=== PATIENT | female | born 1950 | race Caucasian/White ===

== ENCOUNTER 2019-07-29 00:32 | Day surgery (SDC) | payer MEDICARE, SELFPAY ==
[2019-07-23 14:03] VITALS: BMI 51.6
[2019-07-29 10:05] VITALS: BP 124/93; PULSE 86; RESP 18; TEMP 36.6; O2SAT 99; BMI 51.9
[2019-07-29 10:20] LABS: Glucose Point of Care 289 (65-105)
[2019-07-29] MEDS: LACTATED RINGERS 1,000 ML 150 ML IV CONT (10:20)
--- NOTE | 2019-07-29 10:24 | WPDANESEPPF ---
Anes - Initial Pre Proc Eval Procedure: Operation Date: 07/29/19 10:45 Proposed Procedures p Esophagogastroduodenoscopy & Colonoscopy - Vipul Parsons MD Date/Time: 07/29/19 10:24 Surgeon: Vipul Parsons MD Pre Op Diagnosis: Dyspesia, Poss Colorectal Test Patient Data Age: 68 Gender: F Height: 1.55 m Weight: 124.7 kg Last Vital Signs Temp 36.6 C 07/29/19 10:05 Pulse 86 07/29/19 10:05 Resp 18 07/29/19 10:05 BP 124/93 H 07/29/19 10:05 Pulse Ox 99 07/29/19 10:05 Allergies Allergy/AdvReac Type Severity Reaction Status Date / Time codeine Allergy Unknown Itching Verified 07/29/19 09:59 Home Medications Medication Instructions Recorded Confirmed Type amlodipine 10 mg tablet 10 mg PO DAILY #90 tablet 04/08/19 07/23/19 Rx fluoxetine 10 mg tablet 10 mg PO DAILY #90 tablet 04/08/19 07/23/19 Rx furosemide 40 mg tablet 40 mg PO BID #180 tablet 04/08/19 07/23/19 Rx losartan 100 1 tablet PO DAILY #90 tablet 04/08/19 07/23/19 Rx mg-hydrochlorothiazide 12.5 mg tablet metformin 500 mg tablet,extended 1,000 mg PO BID #360 tablet 04/08/19 07/23/19 Rx release 24 hr metoprolol succinate 100 mg 100 mg PO DAILY 04/08/19 07/23/19 History tablet,extended release 24 hr glimepiride 2 mg tablet 2 mg PO BID #180 tablet 06/07/19 07/23/19 Rx meloxicam 15 mg tablet 15 mg PO DAILY #90 tablet 07/06/19 07/23/19 Rx aspirin 81 mg tablet,delayed 81 mg PO DAILY 07/22/19 07/23/19 History release peg 3350-electrolytes 236 240 ml PO Q10M #4000 ml 07/27/19 Rx gram-22.74 gram-6.74 gram-5.86 gram solution Laboratory Tests 07/29/19 10:18 POC Capillary Glucose 289 mg/dl H mg/dl (65-105) Patient hx anesthesia problems: none Family hx anesthesia problems: none PMFSH Past Medical History Medical History (Updated 07/28/19 @ 09:53 by Ebenezer Messer, ) Anxiety Chronic diastolic heart failure Dyspepsia Essential (primary) hypertension Family history of esophageal cancer MDD (major depressive disorder), recurrent episode, moderate Morbid obesity NICOLAS (obstructive sleep apnea) NO CPAP Positive colorectal cancer screening using Cologuard test Type 2 diabetes mellitus with diabetic polyneuropathy, without long-term current use of insulin Surgical History Surgical History (Updated 04/08/19 @ 10:43 by Rocio Acevedo NP) History of bilateral knee arthroplasty History of carpal tunnel release History of cholecystectomy Family History Family History (Updated 04/21/18 @ 10:00 by DOCTOR UNKNOWN) Sibling Diabetes mellitus Patient's sister is in good health Patient's brother is in good health Family history of cardiovascular disease Father Family history of cardiovascular disease Family history of arthritis Family history of malignant neoplasm, Onset Age: 65 Mother Family history of lung disease, Onset Age: 71 Social History Social History (Updated 04/08/19 @ 10:35 by Katelynn Posada) Smoking status: Never smoker Second hand tobacco smoke exposure: No Alcohol intake: former Substance use: never Substance use type: does not use Gender identity (if verbalized by the patient): Female Anes - Eval Final PreProcedure Day of Procedure 07/29/19 10:24 Patient weight: super morbidly obese Heart: regular rate and rhythm Lungs: clear to auscultation and normal air movement Airway: Mallampati scale class III Neurological: alert and oriented Last oral intake: >/= 8 hours ASA classification: IV Emergent: no Anesthetic plan: proceed Anesthesia type and monitoring: general GIVS and standard monitoring Informed Consent: The patient's anesthetic plan and its attendant risks and benefits were discussed with the patient/family/POA. Questions were solicited and answers provided to the satisfaction of the patient/family/POA.
--- NOTE | 2019-07-29 11:36 | WPDHPUPDATE1 ---
History and Physical Update Update Date/Time: 07/29/19 11:36 History and Physical has been reviewed, including an updated exam of the patient. There are NO changes in the patient's condition. Risks, benefits, and alternatives have been discussed and questions answered. Patient agrees to proceed with procedure.
[2019-07-29 11:38] VITALS: BP 122/65; PULSE 66; RESP 20; O2SAT 99
[2019-07-29 11:48] VITALS: BP 140/65; PULSE 70; RESP 20; O2SAT 99
[2019-07-29 11:58] VITALS: BP 132/70; PULSE 66; RESP 20; O2SAT 99
== END 2019-07-29 12:11 | disposition home or self-care (01) ==
PROVIDERS: PCP Family Medicine; Visit Provider Internal Medicine Gastroenterology
PROC: 0DJ08ZZ Inspection of Upper Intestinal Tract, Via Natural or Artificial Opening Endoscopic (ICD-10-PCS; CPT 43235; principal; 2019-07-29 10:45)
DX: C18.6 Malignant neoplasm of descending colon (principal); D12.3 Benign neoplasm of transverse colon; K57.30 Diverticulosis of large intestine without perforation or abscess without bleeding; K64.8 Other hemorrhoids; K21.0 Gastro-esophageal reflux disease with esophagitis; K44.9 Diaphragmatic hernia without obstruction or gangrene; K29.50 Unspecified chronic gastritis without bleeding; I11.0 Hypertensive heart disease with heart failure; I50.32 Chronic diastolic (congestive) heart failure; E11.40 Type 2 diabetes mellitus with diabetic neuropathy, unspecified; F33.1 Major depressive disorder, recurrent, moderate; F41.9 Anxiety disorder, unspecified; Z80.0 Family history of malignant neoplasm of digestive organs; Z79.82 Long term (current) use of aspirin; Z79.84 Long term (current) use of oral hypoglycemic drugs; E66.01 Morbid (severe) obesity due to excess calories; Z68.43 Body mass index [BMI] 50.0-59.9, adult
CPT/HCPCS: 45385; 45381; 43239; 88305; J2704; J7120

== ENCOUNTER → 2019-08-18 08:29 | Outpatient (CLI) | payer MEDICARE, SELFPAY ==
--- NOTE | ~2019-08-18 | CT_ITS ---
EXAMINATION: CT chest abdomen pelvis w con DATE: 08/18/2019 09:12 INDICATION: Malignant neoplasm of descending colon TECHNIQUE: Computed tomography (CT) of the chest, abdomen, and pelvis was performed with 100 cc Omnip aque 350 intravenous contrast. Automated exposure control and iterative reconstruction technique were employed. Exam dose: 1360.04 mGy-cm total exam DLP. COMPARISON: 11/02/2015 CT abdomen pelvis 06/25/2018 two-view chest FINDINGS: CHEST CT: There is an approximately 4.5 mm pleural-based nodule at the middle lobe (series 4 image 66). There is a calcified granuloma of the superior segment of the left lower lobe, as well as calcified l eft hilar nodes, consistent with old pulmonary granulomatous disease. No pulmonary infiltrate or consolidation or suspicious pulmonary mass lesion is noted otherwise. Aortic and great vessel and coronary artery calcifications. No thoracic aortic aneurysm. Cardiomegaly . No pericardial effusion. No pleural effusion. No hilar or mediastinal mass lesion or lymphadenopathy. Normal size and homogeneous enhancement of th e thyroid gland. ABDOMEN/PELVIS CT: Diffuse hepatic steatosis. Status post cholecystectomy. No hepatic, pancreatic, splenic or adrenal mass lesion. No bile duct or pancreatic duct dilatation. Lower pole exophytic 1.5 cm left renal cyst. No other renal space occupying mass lesion. No urinary t ract calculus or hydroureteronephrosis. The urinary bladder, uterus and adnexal areas are unremarkable. Normal appendix. No bowel obstruction or intraperitoneal free air. Degenerative changes at the apophyseal joints of the lumbar and lumbosacral area with associated grad e 1 anterolisthesis at L4-5. No suspicious osteolytic or osteoblastic lesions. Bilateral hip osteoarthritis. IMPRESSION: 4.5 mm pleural-based middle lobe nodule Old pulmonary granulomatous disease Cardiomegaly Hepatic steatosis Status post cholecystectomy 1.5 cm lower pole left renal exophytic cyst Reviewed, dictated and finalized at [facility]. Reviewed, dictated and finalized at [facility].
[2019-08-18 08:58] LABS: Estimated Glomerular Filt Rate > 60
== END ==
PROVIDERS: Visit Provider Internal Medicine Hematology & Oncology
DX: C18.6 Malignant neoplasm of descending colon (principal); R91.8 Other nonspecific abnormal finding of lung field; I51.7 Cardiomegaly; Z90.49 Acquired absence of other specified parts of digestive tract; N20.1 Calculus of ureter
CPT/HCPCS: 36415; 71260; 74177; Q9967

== ENCOUNTER 2019-10-18 13:52 | Outpatient (CLI) | payer MEDICARE, SELFPAY ==
--- NOTE | 2019-10-18 14:49 | ECG_ITS ---
Measurements Intervals [place] Rate: 77 P: 67 GA: 146 QRS: -20 QRSD: 154 T: 22 QT: 402 QTc: 456 Interpretive Statements SINUS RHYTHM SUPRAVENTRICULAR BIGEMINY RIGHT BUNDLE BRANCH BLOCK VOLTAGE CRITERIA FOR LVH ABNORMAL ECG Electronically Signed On 10-18-2019 15:11:42 CDT by Kendell Laws D.O.
[2019-10-18 15:30] LABS: Hematocrit 44.2 % (37.0-47.0); Hemoglobin 14.5 g/dL (12.0-15.0)
[2019-10-18 15:41] LABS: Blood Urea Nitrogen 17 mg/dL (7-17); Calcium 9.7 mg/dL (8.4-10.2); Carbon Dioxide 31 mmol/L (22-30); Chloride 96 mmol/L (98-107); Estimated Glomerular Filt Rate > 60; Glucose 145 mg/dL (65-105); Potassium 3.4 mmol/L (3.4-5.0); Sodium 137 mmol/L (137-145)
[2019-10-18 16:12] LABS: Carcinoembryonic Antigen 3.6 ng/mL (0.0-3.0)
== END 2019-10-18 13:53 | disposition home or self-care (01) ==
LOC: ANHSURGERY 13:56
PROVIDERS: Anesthesiology; PCP Family Medicine; Visit Provider Surgery
DX: C18.6 Malignant neoplasm of descending colon (principal); E11.65 Type 2 diabetes mellitus with hyperglycemia; I50.32 Chronic diastolic (congestive) heart failure; I45.10 Unspecified right bundle-branch block
CPT/HCPCS: 36415; 80048; 82378; 85014; 85018; 86850; 86900; 86901; 93005

== ENCOUNTER 2019-10-23 00:36 | Outpatient (CLI) | payer MEDICARE, SELFPAY ==
[2019-10-23 16:39] LABS: SARS-CoV-2 RNA PCR Negative
== END 2019-10-23 00:37 | disposition home or self-care (01) ==
LOC: ANHCOVIDDT 00:36
PROVIDERS: PCP Family Medicine; Visit Provider Surgery
DX: Z01.812 Encounter for preprocedural laboratory examination (principal); Z20.828 Contact with and (suspected) exposure to other viral communicable diseases; C18.6 Malignant neoplasm of descending colon
CPT/HCPCS: 87635; C9803; U0003

== ENCOUNTER 2019-10-26 16:11 | Inpatient (IN) | payer MEDICARE, SELFPAY ==
[2019-10-18 14:56] VITALS: BP 159/72; PULSE 69; RESP 18; TEMP 37.1; O2SAT 97; BMI 51.5
[2019-10-26] VITALS (14 sets, daily range): BP systolic 103–159; BP diastolic 45–90; PULSE 67–87; RESP 10–20; TEMP 36.1–36.8; O2SAT 96–100
--- NOTE | 2019-10-26 10:23 | WPDANESEPPF ---
Anes - Initial Pre Proc Eval Procedure: Operation Date: 10/26/19 11:30 Proposed Procedures p Hand Assisted Laparoscopic Left Hemicolectomy, Possible Open - Matt Wells DO Date/Time: 10/26/19 10:23 Surgeon: Matt Wells DO Pre Op Diagnosis: Descending Colon Ca Patient Data Age: 68 Gender: F Height: 5 ft 1 in Weight: 123.6 kg Last Vital Signs Temp 98.8 F 10/18/19 14:56 Pulse 69 10/18/19 14:56 Resp 18 10/18/19 14:56 BP 159/72 H 10/18/19 14:56 Pulse Ox 97 10/18/19 14:56 Allergies Allergy/AdvReac Type Severity Reaction Status Date / Time codeine Allergy Unknown Itching Verified 10/18/19 14:45 Home Medications Medication Instructions Recorded Confirmed Type metformin 500 mg tablet,extended 1,000 mg PO BID #360 tablet 04/08/19 10/18/19 Rx release 24 hr multivitamin 1 tablet PO DAILY 08/05/19 10/18/19 History furosemide 40 mg tablet 40 mg PO BID #180 tablet 08/11/19 10/18/19 Rx losartan 100 1 tablet PO DAILY #90 tablet 08/11/19 10/18/19 Rx mg-hydrochlorothiazide 12.5 mg tablet fluoxetine 10 mg capsule 10 mg PO DAILY #90 cap 08/23/19 10/18/19 Rx glimepiride 2 mg tablet 2 mg PO BID #180 tablet 09/05/19 10/18/19 Rx dulaglutide 1.5 mg/0.5 mL 1.5 mg SUB-Q WEEKLY 90 Days #6.5 ml 09/14/19 10/18/19 Rx subcutaneous pen injector omeprazole 20 mg capsule,delayed 20 mg PO BID #180 cap 09/14/19 10/18/19 Rx release albuterol sulfate 0.63 mg INHALATION Q4H PRN 10/18/19 10/18/19 History amlodipine 10 mg PO HS 10/18/19 10/18/19 History insulin glargine [Lantus Solostar 14 unit SUB-Q .am and pm 10/18/19 10/18/19 History U-100 Insulin] metoprolol succinate 100 mg 100 mg PO DAILY #90 tablet 10/22/19 Rx tablet,extended release 24 hr Patient hx anesthesia problems: none Family hx anesthesia problems: none PMFSH Past Medical History Medical History (Updated 10/05/19 @ 11:27 by Shari Ramirez PA-C) Anxiety CHF (congestive heart failure) Chronic diastolic heart failure Dyspepsia Essential (primary) hypertension Family history of esophageal cancer MDD (major depressive disorder), recurrent episode, moderate Morbid obesity NICOLAS (obstructive sleep apnea) NO CPAP Positive colorectal cancer screening using Cologuard test Type 2 diabetes mellitus with diabetic polyneuropathy, without long-term current use of insulin Type 2 diabetes mellitus with hyperglycemia Surgical History Surgical History History of bilateral knee arthroplasty 6 years for r , 6 years for l History of carpal tunnel release 20 years ago History of cholecystectomy 30 years ago Social History Social History (Updated 10/05/19 @ 10:59 by Katelynn Posada) Smoking status: Never smoker Second hand tobacco smoke exposure: No Alcohol intake: former Substance use: never Substance use type: does not use Gender identity (if verbalized by the patient): Female Anes - Eval Final PreProcedure Day of Procedure 10/26/19 10:23 Patient weight: super morbidly obese Heart: regular rate and rhythm Lungs: clear to auscultation Airway: Mallampati scale class II Neurological: alert and oriented Last oral intake: >/= 8 hours ASA classification: IV Emergent: no Anesthetic plan: proceed Anesthesia type and monitoring: general ETT and standard monitoring Informed Consent: The patient's anesthetic plan and its attendant risks and benefits were discussed with the patient/family/POA. Questions were solicited and answers provided to the satisfaction of the patient/family/POA.
[2019-10-26 10:28] LABS: Glucose Point of Care 352 (65-105)
[2019-10-26] MEDS: LACTATED RINGERS 1,000 ML 30 ML IV CONT ×2 (10:55→14:54)
--- NOTE | 2019-10-26 11:05 | PM.IMHP ---
H&P: HPI History of Present Illness Chief complaint: Descending Colon Ca Narrative: Rosa Isela Helms is a 68 year old female who presents for left colectomy. She previously underwent colonoscopy and was found to have colon cancer. Area was tattooed. Other workup was negative for metastases. Review of Systems Review of Systems: All systems reviewed & are unremarkable except as noted in HPI and below PMFSH Past Medical History Medical History Anxiety CHF (congestive heart failure) Chronic diastolic heart failure Dyspepsia Essential (primary) hypertension Family history of esophageal cancer MDD (major depressive disorder), recurrent episode, moderate Morbid obesity NICOLAS (obstructive sleep apnea) NO CPAP Positive colorectal cancer screening using Cologuard test Type 2 diabetes mellitus with diabetic polyneuropathy, without long-term current use of insulin Type 2 diabetes mellitus with hyperglycemia Surgical History Surgical History History of bilateral knee arthroplasty 6 years for r , 6 years for l History of carpal tunnel release 20 years ago History of cholecystectomy 30 years ago Family History Family History Sibling Diabetes mellitus Patient's sister is in good health Patient's brother is in good health Family history of cardiovascular disease Father Family history of cardiovascular disease Family history of arthritis Family history of malignant neoplasm, Onset Age: 65 Throat cancer Mother Family history of lung disease, Onset Age: 71 COPD (chronic obstructive pulmonary disease) Unknown Diabetes mellitus Cancer Hypertension Social History Social History Smoking status: Never smoker Second hand tobacco smoke exposure: No Alcohol intake: former Substance use: never Substance use type: does not use Gender identity (if verbalized by the patient): Female Meds Home Medications and Allergies Home Medications Medication Instructions Recorded Confirmed Type metformin 500 mg tablet,extended 1,000 mg PO BID #360 tablet 04/08/19 10/18/19 Rx release 24 hr multivitamin 1 tablet PO DAILY 08/05/19 10/18/19 History furosemide 40 mg tablet 40 mg PO BID #180 tablet 08/11/19 10/18/19 Rx losartan 100 1 tablet PO DAILY #90 tablet 08/11/19 10/18/19 Rx mg-hydrochlorothiazide 12.5 mg tablet fluoxetine 10 mg capsule 10 mg PO DAILY #90 cap 08/23/19 10/18/19 Rx glimepiride 2 mg tablet 2 mg PO BID #180 tablet 09/05/19 10/18/19 Rx dulaglutide 1.5 mg/0.5 mL 1.5 mg SUB-Q WEEKLY 90 Days #6.5 ml 09/14/19 10/18/19 Rx subcutaneous pen injector omeprazole 20 mg capsule,delayed 20 mg PO BID #180 cap 09/14/19 10/18/19 Rx release albuterol sulfate 0.63 mg INHALATION Q4H PRN 10/18/19 10/18/19 History amlodipine 10 mg PO HS 10/18/19 10/18/19 History insulin glargine [Lantus Solostar 14 unit SUB-Q .am and pm 10/18/19 10/18/19 History U-100 Insulin] metoprolol succinate 100 mg 100 mg PO DAILY #90 tablet 10/22/19 Rx tablet,extended release 24 hr Allergies Allergy/AdvReac Type Severity Reaction Status Date / Time codeine Allergy Unknown Itching Verified 10/18/19 14:45 Exam GI: Other: Right subcostal scar from previous cholecystectomy Assessment and Plan Assessment and plan (1) Cancer of descending colon: Code(s): C18.6 - Malignant neoplasm of descending colon Status: Acute Assessment and Plan: I have recommended hand assisted laparoscopic left hemicolectomy, possible open. I have discussed the procedure, risks, benefits, and alternatives with the patient. All questions answered. No changes since last seen in office. (2) CHF (congestive heart failure): Qualifiers: Heart failure type: unspecified
[2019-10-26] MEDS: ceFAZolin 3 GM/D5W 100 ML 100 ML IVPB (11:18)
[2019-10-26 11:23] LABS: Glucose Point of Care 322 (65-105)
--- NOTE | 2019-10-26 11:33 | SUR.PREOP ---
1019-Pts Blood Glucose 352. Pt stated that it was 120 this morning but she had Ensure bowel prep this morning before coming in for surgery. I notified Dr Aranda. Dr Aranda wanted me to repeat BG before pt goes back into the OR
--- NOTE | 2019-10-26 11:36 | SUR.PREOP ---
1108 Pt blood sugar 322; Dr Aranda was notified
[2019-10-26] MEDS: metroNIDAZOLE 500 MG/ISO 100ML 500 MG/100 ML BAG 100 MG IVPB (11:45)
[2019-10-26] MEDS: IBUPROFEN IV 800 MG/200 ML 800 MG/200 ML BAG 400 MG IVPB (11:50)
[2019-10-26 15:03] LABS: Glucose Point of Care 193 (65-105)
[2019-10-26 15:03] LABS: Glucose Point of Care 214 (65-105)
--- NOTE | 2019-10-26 15:23 | SUR.PHASEI ---
1523 - family updated on pt's status
[2019-10-26] MEDS: ONDANSETRON INJ 4 MG/2 ML VIAL IV PUSH (15:25)
--- NOTE | 2019-10-26 16:40 | ADMGEN ---
This patient, Rosa Isela Helms, was admitted to 3 Med Surg Room 317-01 @ 1620. Patient/family oriented to hospital policies and general routines including ID bracelet, bed and alarms, visiting hours, pain management, procedures, bathroom and other care routines, personal items, smoking policy, room service/diet, and visiting hours. Valuables list has been completed. Information on how to activate the Rapid Response Team has been discussed. Patient/Family are encouraged to report perceived risks to care and to ask questions if they do not understand what they are told or what they should do.
--- NOTE | 2019-10-26 17:09 | PM.PROC ---
Procedure Note - Detailed Date of procedure: 10/26/19 Pre-op diagnosis: Descending Colon Ca Post-op diagnosis: same Procedure performed: 1. Hand assisted laparoscopic left hemicolectomy with hand-sewn anastomosis 2. Laparoscopic mobilization of splenic flexure Description of procedure: Procedure as well as risks, benefits, and alternatives were discussed with the patient. Written consent was obtained and placed in chart prior to procedure. Patient was brought back to surgical suite. She was placed supine on operating table. Time-out was done to confirm patient and procedure. She was then intubated by the Anesthesia Department. She was repositioned into modified lithotomy position in stirrups. Rectal irrigation was performed with Betadine and saline and then the parminder rectal area was prepped and draped in sterile fashion using Betadine prep. The abdomen was prepped and draped in sterile fashion using chlorhexidine prep. An 8 cm vertical midline incision was made just superior to the umbilicus using a 15 blade scalpel. Electrocautery was used for hemostasis and for dissection down through Patricia's fascia. The midline linea alba was identified and incised with electrocautery. The peritoneum was then entered using electrocautery as well. Once inside the abdominal cavity, I carefully inspected through the hand port incision to ensure there were no adhesions up to the abdominal wall in this location. The wound protector was then inserted. A 5 mm port was placed through the GelPort and then the GelPort was attached to the wound protector and carbon dioxide insufflation was used to create a pneumoperitoneum. The camera was inserted in the abdominal cavity was inspected. No immediate abnormalities were identified. The patient was placed in slight Trendelenburg position and rotated slightly to the right. 5 mm incisions were made in the right upper quadrant, right lower quadrant, suprapubic region, and left lower quadrant. 5 mm ports were then placed under direct visualization all 4 these locations. After a thorough inspection of the abdominal cavity, I identified the area of tattooing in the mid descending colon. No other intra-abdominal abnormalities were noted. The omentum was retracted cephalad over the stomach and the small bowel was retracted to the right. Due to the patient's body habitus, it was very difficult to identify our medial landmarks for a medial to lateral dissection. I therefore chose to perform a lateral to medial dissection. The descending colon sigmoid colon junction was retracted medially and LigaSure electrocautery was used to carefully take down the lateral peritoneal reflection. As I entered into the space, I was able to identify the left ureter and preserve it in its location. I carefully ensured that the left ureter was protected throughout the entire lateral to medial dissection. I then freed up the proximal sigmoid colon by further taking down some of the lateral peritoneal reflections, and then I also took down the lateral peritoneal reflections of the descending colon. Care was taken also to identify Gerota fascia and maintain the avascular plane between the descending mesocolon and Gerota fascia. I then continued this dissection cephalad up towards the splenic flexure. I identified the tail of the pancreas as I began taking down the splenic flexure with LigaSure bipolar cautery. I then repositioned the patient in slight reverse Trendelenburg position and the omentum was brought back down over the transverse colon and small bowel. I then entered the lesser sac between the transverse colon and greater curvature of the stomach using LigaSure bipolar cautery. The distal transverse colon was then mobilized by continuing this dissection out laterally to the splenic flexure. The splenic flexure was completely mobilized to allow for adequate length of colon for resection and anastomosis. At this point the entire descending colon appeared
[2019-10-26] MEDS: ACETAMINOPHEN 500 MG TABLET 1000 MG PO ×2 (18:22→23:50)
[2019-10-26] MEDS: LACTATED RINGERS 1,000 ML 100 ML IV CONT (18:30)
[2019-10-26] MEDS: HYDROMORPHONE HCL 1 MG/ML INJ IV PUSH ×2 (18:31→22:53)
[2019-10-26] MEDS: ENOXAPARIN 30 MG/0.3 ML SYRINGE SUB-Q (20:30)
--- NOTE | 2019-10-26 21:20 | PM.IMCN ---
Assessment and Plan Assessment and plan (1) Cancer of descending colon: Code(s): C18.6 - Malignant neoplasm of descending colon Status: Acute Assessment and Plan: The patient underwent hand assisted laparoscopic left hemicolectomy with hand-sewn anastomosis. The patient has been up in the chair and appears to be doing well. She is tolerating liquid diet. Postop care per surgery. (2) Type 2 diabetes mellitus with hyperglycemia: Code(s): E11.65 - Type 2 diabetes mellitus with hyperglycemia Status: Acute Assessment and Plan: I explained that I was going to hold her metformin. Will do sliding scale insulin and continue with her Lantus. She is on Trulicity but I believe that is non formulary she was due for the Trulicity today. However she feels that it would not be available as she does not have anybody to bring it up. I told her that we would do sliding scale insulin. It appears that her insurer is making her blood sugars high we may have to switch it to something that has low carbs in it. Continue with the glimepiride (3) CHF (congestive heart failure): Qualifiers: Heart failure type: unspecified Heart failure chronicity: unspecified Qualified Code(s): I50.9 - Heart failure, unspecified Code(s): I50.9 - Heart failure, unspecified Status: Acute Assessment and Plan: Continue with her Lasix as the patient has a Larson catheter in at this time. Continue with metoprolol and losartan. (4) Mixed hyperlipidemia: Code(s): E78.2 - Mixed hyperlipidemia Status: Acute (5) Essential (primary) hypertension: Code(s): I10 - Essential (primary) hypertension Status: Acute Assessment and Plan: Continue with losartan, Lasix, Norvasc, and metoprolol. (6) MDD (major depressive disorder), recurrent episode, moderate: Code(s): F33.1 - Major depressive disorder, recurrent, moderate Status: Acute Assessment and Plan: Continue with Prozac Additional Plan I think surgery for the opportunity to consult on this pleasant patient. HPI Data of Consult Consult date: 10/26/19 Requesting Physician: Matt Wells DO Primary Care Provider: Elidia Durand MD Consult Narrative Narrative: Rosa Isela Helms is a 68 year old female who had a colonoscopy approximately 15 years ago and was so she was clear. So the patient did at the Cologuard testing was found to be positive. Then the patient went on to have a colonoscopy in she was found to have some polyps. The patient underwent a hand assisted laparoscopic left hemicolectomy with the a hand-sewn anastomosis and laparoscopic mobilization of splenic flexure. This was performed for Dr. Wells today. Patient tolerated well. The patient is sitting up in the chair. She is diabetic and recently went on Lantus and had increased. Patient stated she has been drinking Ensure and that makes her blood sugars scope in the 300s. Her Accu-Cheks today blood sugar was 352, 214, and 193. Patient's CEA level was noted to be 3.6 on 10/18/2019. i Review of Systems Review of Systems: All systems reviewed & are unremarkable except as noted in HPI and below Constitutional: Constitutional: Reports as per HPI and Reports no additional constitutional complaints Eyes: Eyes: Reports as per HPI and Reports no additional eye complaints ENT: Reports system reviewed and no additional complaints, except as documented and Reports Normal hearing present Cardiovascular: Cardiovascular: Reports no additional cardiovascular complaints Respiratory: Respiratory: Reports no additional respiratory complaints and Reports no additional respiratory complaints Gastrointestinal: Gastrointestinal: Reports as per HPI and Reports no additional gastrointestinal complaints Musculoskeletal: Musculoskeletal: Reports no additional musculoskeletal complaints Integumentary/Breasts: Skin/Breast: Reports system reviewed and no ad
[2019-10-26] MEDS: INSULIN GLARGINE (*BKC) 100 UNITS/ML 16 UNITS SUB-Q (21:54)
[2019-10-26] MEDS: PANTOPRAZOLE 40 MG TABLET PO (21:58)
[2019-10-26 22:20] LABS: Glucose Point of Care 277 (65-105)
[2019-10-27] VITALS (8 sets, daily range): BP systolic 119–149; BP diastolic 47–75; PULSE 67–80; RESP 18–20; TEMP 36.6–37.3; O2SAT 94–100
[2019-10-27] MEDS: HYDROMORPHONE HCL 1 MG/ML INJ IV PUSH (02:35)
[2019-10-27] MEDS: LACTATED RINGERS 1,000 ML 100 ML IV CONT (05:35)
[2019-10-27] MEDS: ACETAMINOPHEN 500 MG TABLET 1000 MG PO ×2 (05:36→12:14)
[2019-10-27 06:43] LABS: Basophils Absolute Auto 0.1 K/mm3 (0.0-0.1); Basophils Percent Auto 0.3 % (0.2-1.2); Eosinophils Absolute Auto 0.6 K/mm3 (0-0.3); Eosinophils Percent Auto 3.2 % (0-4.4); Hematocrit 36.2 % (37.0-47.0); Hemoglobin 11.8 g/dL (12.0-15.0); Immature Granulocyte Absolute 0.08 K/mm3 (0.00-0.031); Immature Granulocyte Percent A 0.4 % (0-0.5); Lymphocytes Absolute Auto 4.67 K/mm3 (0.9-3.2); Lymphocytes Percent Auto 25.8 % (18.3-44.2); Mean Corpuscular HGB Conc 32.6 g/dl (32-36); Mean Platelet Volume 10.6 fl (7.4-10.4); Monocytes Absolute Auto 1.5 K/mm3 (0.1-0.6); Monocytes Percent Auto 8.1 % (2.6-8.5); Neutrophils Absolute Auto 11.3 K/mm3 (1.3-6.7); Neutrophils Percent Auto 62.2 % (45.5-73.1); Platelet Count Result 282 k/mm3 (150-375); Red Blood Count 4.21 M/mm3 (4.2-5.4); Red Cell Distribution Width 14.4 % (11.5-14.5); White Blood Count 18.1 K/mm3 (4.5-10.0)
[2019-10-27 06:59] LABS: Blood Urea Nitrogen 12 mg/dL (7-17); Calcium 8.4 mg/dL (8.4-10.2); Carbon Dioxide 32 mmol/L (22-30); Chloride 97 mmol/L (98-107); Estimated CRCL calculation 82 ml/min; Estimated Glomerular Filt Rate > 60; Glucose 93 mg/dL (65-105); Potassium 3.1 mmol/L (3.4-5.0); Sodium 133 mmol/L (137-145)
--- NOTE | 2019-10-27 09:19 | WPDANESPN ---
Anes - Prog Note Post-Op Date/Time: 10/27/19 09:19 Cardiovascular status: normal Respiratory status: normal Airway patency: baseline Mental status: baseline Post-Op hydration status: normal Vital Signs: Last Vital Signs Temp 36.8 C 10/27/19 05:56 Pulse 72 10/27/19 05:56 Resp 20 10/27/19 05:56 BP 129/55 L 10/27/19 05:56 Pulse Ox 94 10/27/19 05:56 I/O: Intake & Output 10/26/19 10/27/19 10/27/19 23:59 07:59 15:59 Intake Total 700 1300 Output Total 160 800 Balance 540 500 Laboratory Tests 10/27/19 06:17 10/27/19 06:17 10/26/19 10/26/19 10/26/19 10:19 11:08 12:54 WBC RBC Hgb Hct MCV MCH MCHC RDW Plt Count MPV Immature Gran % (Auto) Neut % (Auto) Lymph % (Auto) Elk % (Auto) Eos % (Auto) Baso % (Auto) Lymph # (Auto) Elk # (Auto) Eos # (Auto) Baso # (Auto) Abs Immat Gran (auto) Absolute Neuts (auto) Absolute Nucleated RBC Nucleated RBC % Sodium Potassium Chloride Carbon Dioxide BUN Creatinine Estim Creat Clear Calc Estimated GFR Glucose POC Capillary Glucose 352 H 322 H 214 H Calcium 10/26/19 10/26/19 10/27/19 15:01 21:51 06:17 WBC 18.1 H RBC 4.21 Hgb 11.8 L Hct 36.2 L MCV 86.0 MCH 28.0 MCHC 32.6 RDW 14.4 Plt Count 282 MPV 10.6 H Immature Gran % (Auto) 0.4 Neut % (Auto) 62.2 Lymph % (Auto) 25.8 Elk % (Auto) 8.1 Eos % (Auto) 3.2 Baso % (Auto) 0.3 Lymph # (Auto) 4.67 H Elk # (Auto) 1.5 H Eos # (Auto) 0.6 H Baso # (Auto) 0.1 Abs Immat Gran (auto) 0.08 H Absolute Neuts (auto) 11.3 H Absolute Nucleated RBC 0.0 Nucleated RBC % 0.0 Sodium Potassium Chloride Carbon Dioxide BUN Creatinine Estim Creat Clear Calc Estimated GFR Glucose POC Capillary Glucose 193 H 277 H Calcium 10/27/19 06:17 WBC RBC Hgb Hct MCV MCH MCHC RDW Plt Count MPV Immature Gran % (Auto) Neut % (Auto) Lymph % (Auto) Elk % (Auto) Eos % (Auto) Baso % (Auto) Lymph # (Auto) Elk # (Auto) Eos # (Auto) Baso # (Auto) Abs Immat Gran (auto) Absolute Neuts (auto) Absolute Nucleated RBC Nucleated RBC % Sodium 133 L Potassium 3.1 L Chloride 97 L Carbon Dioxide 32 H BUN 12 D Creatinine 0.70 Estim Creat Clear Calc 82 Estimated GFR > 60 Glucose 93 POC Capillary Glucose Calcium 8.4 Post-procedural complaints: none Patient Feedback: Patient satisfied with anesthetic care.
[2019-10-27] MEDS: ENOXAPARIN 30 MG/0.3 ML SYRINGE SUB-Q ×2 (09:29→20:35)
[2019-10-27] MEDS: POTASSIUM CHLORIDE 20 MEQ TABLET 40 MEQ PO (09:29)
[2019-10-27] MEDS: GLIMEPIRIDE 2 MG TABLET PO ×2 (09:29→17:04)
[2019-10-27] MEDS: LOSARTAN POTASSIUM 100 MG TABLET PO (09:30)
[2019-10-27] MEDS: hydroCHLOROthiazide 12.5 MG CAPSULE PO (09:30)
[2019-10-27] MEDS: FLUOXETINE HCL 10 MG CAPSULE PO (09:30)
[2019-10-27] MEDS: FUROSEMIDE 40 MG TABLET PO (09:30)
[2019-10-27] MEDS: PANTOPRAZOLE 40 MG TABLET PO ×2 (09:31→20:36)
[2019-10-27] MEDS: MULTIVITAMINS THERAPEUTIC TAB (*BKC) 1 TABLET PO (09:31)
[2019-10-27] MEDS: METOPROLOL SUCCINATE EXT REL 100 MG TABCR PO (09:31)
[2019-10-27 09:33] LABS: Glucose Point of Care 101 (65-105)
[2019-10-27] MEDS: INSULIN GLARGINE (*BKC) 100 UNITS/ML 16 UNITS SUB-Q ×2 (09:40→20:38)
--- NOTE | 2019-10-27 10:26 | PM.IMPN ---
Progress Note: A&P Assessment and Plan (1) Cancer of descending colon: Code(s): C18.6 - Malignant neoplasm of descending colon Status: Acute Assessment and Plan: The patient underwent hand assisted laparoscopic left hemicolectomy with hand-sewn anastomosis. The patient has been up in the chair and appears to be doing well. She is tolerating liquid diet. Postop care per general surgery. Continue clear liquid diet (2) Type 2 diabetes mellitus with hyperglycemia: Code(s): E11.65 - Type 2 diabetes mellitus with hyperglycemia Status: Acute Assessment and Plan: Her blood sugars have been elevated since admission as high as 352. Today, blood sugar is improved with fasting at 93 and 101 on repeat. No prior A1c is available in chart. Continue accuchecks ACHS, SSI, and hypoglycemia protocol Will obtain updated A1c Continue to hold metformin and trulicity which is non-formulary Continue glimepiride (3) CHF (congestive heart failure): Qualifiers: Heart failure chronicity: unspecified Heart failure type: unspecified Qualified Code(s): I50.9 - Heart failure, unspecified Code(s): I50.9 - Heart failure, unspecified Status: Acute Assessment and Plan: Patient has a documented history of CHF but no prior echo or BNP is available for review. CT chest reveals cardiomegaly. She appears generally euvolemic on exam. Will hold Lasix while patient is receiving IV fluid rehydration. Plan to resume Lasix once fluids can be discontinued. Continue with metoprolol and losartan (4) Essential (primary) hypertension: Code(s): I10 - Essential (primary) hypertension Status: Acute Assessment and Plan: Blood pressures were reviewed and are fluctuant but acceptable. Previous elevated readings were likely due to antihypertensives being held. Blood pressure today is 129/55. Continue with losartan, HCTZ, Norvasc, and metoprolol. Hold Lasix. Continue to monitor blood pressures closely. (5) MDD (major depressive disorder), recurrent episode, moderate: Code(s): F33.1 - Major depressive disorder, recurrent, moderate Status: Acute Assessment and Plan: Stable at this time. Continue with Prozac (6) Hypokalemia: Code(s): E87.6 - Hypokalemia Status: Acute Assessment and Plan: Potassium was low this morning, probably due to reduced oral intake. Replace potassium Continue to monitor potassium levels Additional Plan Will add Tums as patient is complaining of indigestion. Subjective Date/time seen: 10/27/19 10:26 Interval history: Date of service: 10/27/2019 She reports she is feeling well today. She endorses mild abdominal discomfort in a bandlike pattern around midline. She reports her pain has been well controlled. She is tolerating clear liquid diet and is requesting to advance. She would like to eat scrambled legs. She does endorse a little bit of indigestion. She is passing flatus and even had a very small loose bowel movement this morning. She was able to transition from bed to chair without difficulty. She denies shortness of breath, dyspnea on exertion, chest pain, or palpitations. She has a Larson catheter in place that is draining clear yellow urine. She slept well last night. She reports her mood is good and denies anxiety or depression. Review of Systems Review of Systems: Narrative: A 12 point review of systems was reviewed with pertinent positives and negatives as per HPI. Exam Narrative: Exam Narrative: Ms. Helms is examined alone today. She is an obese 68-year-old female who is sitting up in a chair by the bedside eating lunch. She appears comfortable and is in no acute respiratory distress. HR 72, BP 129/55, RR 20, T 98.3?, 94% on room air Neuro: awake, alert and oriented x4, speech clear, no focal neuro deficits noted HEENMT: normocephalic, atraumatic, EOMI,
--- NOTE | 2019-10-27 12:00 | PM.PNGS ---
Progress Note: A&P Assessment and Plan (1) Cancer of descending colon: Code(s): C18.6 - Malignant neoplasm of descending colon Status: Acute Assessment and Plan: POD1 and doing well. Pain well controlled and tolerating her diet. WBC 18,000 today, will repeat labs in the morning. Will advance her to a full liquid diet and add oral pain medication PRN. D/C IV fluids. Encouraged increased activity and walking in the halls. Pathology pending. (2) Hypokalemia: Code(s): E87.6 - Hypokalemia Status: Acute Assessment and Plan: K 3.1 and replaced with oral potassium this morning. Will recheck labs tomorrow. (3) Type 2 diabetes mellitus with diabetic polyneuropathy, without long-term current use of insulin: Code(s): E11.42 - Type 2 diabetes mellitus with diabetic polyneuropathy Status: Acute Assessment and Plan: Glucose this morning 93. Management per Hospitalist. Currently on sliding scale insulin. (4) CHF (congestive heart failure): Qualifiers: Heart failure type: unspecified Heart failure chronicity: unspecified Qualified Code(s): I50.9 - Heart failure, unspecified Code(s): I50.9 - Heart failure, unspecified Status: Acute (5) Morbid obesity: Code(s): E66.01 - Morbid (severe) obesity due to excess calories Status: Acute Additional Plan Discussed plan of care with Dr. Wells today. Subjective Subjective Date/Time Seen: 10/27/19 12:00 Post Op day: 1 (CHRISSY left hemicolectomy) Patient reports: tolerating liquids well, voiding w/o difficulty and nausea Interval history: Patient seen and examined. Reports feeling well today with some nausea this morning after eating clear liquids for breakfast. Denies bloating or vomiting. Reports her abdominal pain is tolerable and primarily with movement. Reports lots of flatus and 2 small BMs this morning that were dark brown and loose. No other complaints at this time. Review of Systems Review of Systems: All systems reviewed & are unremarkable except as noted in HPI and below Constitutional: Constitutional: Reports no additional constitutional complaints, Denies chills and Denies fever(s) Cardiovascular: Cardiovascular: Reports no additional cardiovascular complaints, Denies chest pain, Denies leg edema and Denies lightheadedness Respiratory: Respiratory: Reports no additional respiratory complaints, Denies cough and Denies dyspnea Gastrointestinal: Gastrointestinal: Reports as per HPI and Reports no additional gastrointestinal complaints Genitourinary: Genitourinary: Reports no additional female genitourinary complaints and Reports as per HPI Exam Const: General: comfortable, no acute distress, alert and awake Orientation/consciousness: patient oriented x3 GI: Inspection: non-distended, incision (Abdominal incisions clean, dry, intact) and obesity GI Palp: Yes Soft to palpation, Yes Tenderness to palpation present (GI) (incisional), No Guarding due to palpation present (GI), No Hernia present and No Rebound tenderness present Auscultation: Hypoactive bowel sounds present Skin: General skin exam: normal color Neuro: General: patient oriented x3, moves all extremities and no focal motor deficits Cranial nerves: Yes CN's II-XII intact bilaterally Speech: normal speech Extrem: General: no calf tenderness and no edema Psych: Mental Status: mental status grossly normal Attitude: cooperative Thought process: Normal thought process present Thought content: Yes Normal thought content present Objective Data Vital Signs Vital Signs: Vital Signs - 24 hr 10/26/19 14:54 10/26/19 15:05 10/26/19 15:20 Temperature 36.6 C Pulse Rate 70 68 69 Respiratory Rate 10 L 14 12 Blood Pressure 140/90 159/75 H 135/54 L Pulse Oximetry 100 100 100 10/26/19 15:35 10/26/19 15:50 10/26/19 16:05 Temperature Pulse Rate 74 67 69 Respiratory Rate 14 14 18 Blood Pressure 140/88 125/78 144/80 H Pulse Oxi
[2019-10-27 13:15] LABS: Glucose Point of Care 233 (65-105)
[2019-10-27 18:09] LABS: Glucose Point of Care 140 (65-105)
[2019-10-27] MEDS: AMLODIPINE BESYLATE 5 MG TABLET 10 MG PO (20:36)
[2019-10-27 20:38] LABS: Glucose Point of Care 124 (65-105)
[2019-10-28 02:00] VITALS: BP 127/42; PULSE 74; RESP 18; TEMP 36.5; O2SAT 99
[2019-10-28 06:00] VITALS: BP 149/81; PULSE 77; RESP 20; TEMP 36.7; O2SAT 99
[2019-10-28 06:10] LABS: Basophils Absolute Auto 0.1 K/mm3 (0.0-0.1); Basophils Percent Auto 0.3 % (0.2-1.2); Eosinophils Absolute Auto 0.5 K/mm3 (0-0.3); Hematocrit 37.1 % (37.0-47.0); Hemoglobin 12.1 g/dL (12.0-15.0); Immature Granulocyte Absolute 0.11 K/mm3 (0.00-0.031); Immature Granulocyte Percent A 0.7 % (0-0.5); Lymphocytes Absolute Auto 4.56 K/mm3 (0.9-3.2); Lymphocytes Percent Auto 29.3 % (18.3-44.2); Mean Corpuscular HGB Conc 32.6 g/dl (32-36); Mean Corpuscular Hemoglobin 28.5 pg (26-34); Mean Corpuscular Volume 87.5 fl (80-100); Mean Platelet Volume 10.9 fl (7.4-10.4); Monocytes Absolute Auto 1.3 K/mm3 (0.1-0.6); Monocytes Percent Auto 8.1 % (2.6-8.5); Neutrophils Absolute Auto 9.1 K/mm3 (1.3-6.7); Neutrophils Percent Auto 58.6 % (45.5-73.1); Platelet Count Result 276 k/mm3 (150-375); Red Blood Count 4.24 M/mm3 (4.2-5.4); Red Cell Distribution Width 14.5 % (11.5-14.5); White Blood Count 15.6 K/mm3 (4.5-10.0)
[2019-10-28 06:36] LABS: Hemoglobin A1C 8.3 % (<5.7)
[2019-10-28 06:41] LABS: Blood Urea Nitrogen 10 mg/dL (7-17); Calcium 8.5 mg/dL (8.4-10.2); Carbon Dioxide 32 mmol/L (22-30); Chloride 102 mmol/L (98-107); Estimated CRCL calculation 98 ml/min; Estimated Glomerular Filt Rate > 60; Glucose 70 mg/dL (65-105); Potassium 3.7 mmol/L (3.4-5.0); Sodium 136 mmol/L (137-145)
[2019-10-28] MEDS: PANTOPRAZOLE 40 MG TABLET PO ×2 (08:59→22:20)
[2019-10-28] MEDS: MULTIVITAMINS THERAPEUTIC TAB (*BKC) 1 TABLET PO (09:00)
[2019-10-28] MEDS: FLUOXETINE HCL 10 MG CAPSULE PO (09:00)
[2019-10-28] MEDS: hydroCHLOROthiazide 12.5 MG CAPSULE PO (09:00)
[2019-10-28] MEDS: METOPROLOL SUCCINATE EXT REL 100 MG TABCR PO (09:00)
[2019-10-28] MEDS: LOSARTAN POTASSIUM 100 MG TABLET PO (09:01)
[2019-10-28] MEDS: GLIMEPIRIDE 2 MG TABLET PO ×2 (09:01→18:28)
[2019-10-28] MEDS: ENOXAPARIN 30 MG/0.3 ML SYRINGE SUB-Q ×2 (09:01→22:20)
[2019-10-28] MEDS: INSULIN GLARGINE (*BKC) 100 UNITS/ML 16 UNITS SUB-Q ×2 (09:09→22:57)
--- NOTE | 2019-10-28 10:50 | PM.IMPN ---
Progress Note: A&P Assessment and Plan (1) Cancer of descending colon: Code(s): C18.6 - Malignant neoplasm of descending colon Status: Acute Assessment and Plan: The patient underwent hand assisted laparoscopic left hemicolectomy with hand-sewn anastomosis 10/26/[address] Wells. She is POD #2. Overall patient is ambulating, pain is well controlled, and she appears to be doing well. She is tolerating full liquid diet. Postop care per general surgery. Dietary advancement per general surgery. (2) Type 2 diabetes mellitus with hyperglycemia: Code(s): E11.65 - Type 2 diabetes mellitus with hyperglycemia Status: Acute Assessment and Plan: Her blood sugars have been elevated since admission as high as 352. Updated A1c is 8.3. Readings have improved and today blood sugar is stable with fasting glucose 70. Continue accuchecks ACHS, SSI, and hypoglycemia protocol Continue to hold metformin and trulicity which is non-formulary Continue glimepiride (3) CHF (congestive heart failure): Qualifiers: Heart failure type: unspecified Heart failure chronicity: unspecified Qualified Code(s): I50.9 - Heart failure, unspecified Code(s): I50.9 - Heart failure, unspecified Status: Acute Assessment and Plan: Patient has a documented history of CHF but no prior echo or BNP is available for review. CT chest reveals cardiomegaly. She appears generally euvolemic on exam with some mild lower extremity edema Resume patient's home Lasix 40 mg BID Continue with metoprolol and losartan (4) Essential (primary) hypertension: Code(s): I10 - Essential (primary) hypertension Status: Acute Assessment and Plan: Blood pressures were reviewed and fluctuating mildly HIDA mildly low, but overall are acceptable. Previous elevated readings were likely due to antihypertensives being held. Blood pressure today is 149/81 prior to administration of antihypertensive medication. Continue with losartan, HCTZ, Norvasc, and metoprolol. Resume home Lasix. Continue to monitor blood pressures closely. (5) MDD (major depressive disorder), recurrent episode, moderate: Code(s): F33.1 - Major depressive disorder, recurrent, moderate Status: Acute Assessment and Plan: Stable at this time. Continue with Prozac (6) Hypokalemia: Code(s): E87.6 - Hypokalemia Status: Acute Assessment and Plan: Patient developed hypokalemia postoperatively, probably due to reduced oral intake. Potassium was replaced and is now stable at 3.7. Continue to monitor potassium levels Subjective Date/time seen: 10/28/19 10:50 Interval history: Date of service: 10/28/2019 She reports she is feeling well today. She is sitting up in the chair and is comfortable. She reports abdominal pain only with rotating in bed and getting out of bed. At rest, she reports no pain. She is getting up and walking to the bathroom without difficulty. She has urinary negative any denies dysuria or hematuria. She had a loose bowel movement this morning. She denies any abdominal pain or cramping. She denies nausea, vomiting, fever, or chills. She reports she is eating well and tolerating her diet. She had some oatmeal this morning. She still is requesting to advance her diet so that she can eat eggs. She is sleeping well. Her mood is good. Review of Systems Review of Systems: Narrative: A 12 point review of systems was reviewed with pertinent positives and negatives as per HPI. Exam Narrative: Exam Narrative: Ms. Helms is examined alone today. She is an obese 68-year-old female who is sitting up in a chair by the bedside eating lunch. She appears comfortable and is in no acute respiratory distress. HR 74, BP 127/42, R 18, T 97.7?, 99% on room air Neuro: awake, alert and oriented x4, speech clear, no focal neuro deficits noted HEENMT:
[2019-10-28 12:15] LABS: Glucose Point of Care 258 (65-105)
[2019-10-28] MEDS: INSULIN ASPART (*BKC) 100 UNITS/ML SUB-Q (12:30)
--- NOTE | 2019-10-28 12:42 | PM.PNGS ---
Progress Note: A&P Assessment and Plan (1) Cancer of descending colon: Code(s): C18.6 - Malignant neoplasm of descending colon Status: Acute Assessment and Plan: Pathology pending Advance to soft diabetic diet today Increase activity Possibly home tomorrow (2) Type 2 diabetes mellitus with hyperglycemia: Code(s): E11.65 - Type 2 diabetes mellitus with hyperglycemia Status: Acute Assessment and Plan: Blood sugars well controlled in postop period. HbA1c >8% which signifies poor controll preoperatively (3) Morbid obesity: Code(s): E66.01 - Morbid (severe) obesity due to excess calories Status: Acute Subjective Subjective Date/Time Seen: 10/28/19 12:42 Post Op day: 2 Patient reports: feels better, pain is less, flatus and bowel movement Interval history: Tolerating full liquids. Getting up and ambulating well. Exam GI: Inspection: non-distended, incision (clean/dry/intact) and obesity GI Palp: Yes Soft to palpation and Yes Tenderness to palpation present (GI) (incisional) Percussion: Yes normal to percussion Auscultation: normal bowel sounds Objective Data Vital Signs Vital Signs: Vital Signs - 24 hr 10/27/19 14:00 10/27/19 20:32 10/27/19 22:00 Temperature 36.7 C 36.8 C Pulse Rate 75 67 78 Respiratory Rate 18 20 Blood Pressure 119/47 L 144/75 H 135/58 L Pulse Oximetry 100 97 10/28/19 02:00 10/28/19 06:00 Temperature 36.5 C 36.7 C Pulse Rate 74 77 Respiratory Rate 18 20 Blood Pressure 127/42 L 149/81 H Pulse Oximetry 99 99 Intake/Output Intake/Output: Intake & Output 10/25/19 10/26/19 10/27/19 10/28/19 23:59 23:59 23:59 23:59 Intake Total 1200 2185 790 Output Total 160 3050 1600 Balance 1040 -213 -810 Meds/Results Medications: Active Medications Generic Name Dose Route Start Last Admin Trade Name Freq PRN Reason Stop Dose Admin Hydrocodone Bitart/Acetaminophen 1 tab 10/27/19 16:23 10/28/19 06:07 [place] 5-325 Mg PO 1 tab Q4H PRN Administration Pain Rated 4-6 Hydrocodone Bitart/Acetaminophen 1 tab 10/27/19 16:23 10/27/19 23:32 [place] 10-325 Mg PO 1 tab Q4H PRN Administration Pain Rated 7-10 Albuterol 0.63 mg 10/26/19 21:15 Albuterol Sulf Neb 2.5 Mg/3 Ml INHALATION Q4H PRN Shortness Of Breath Or Wheezing Amlodipine Besylate 10 mg 10/27/19 21:00 10/27/19 20:36 Norvasc PO 10 mg HS KENYA Administration Calcium Carbonate 200 mg 10/27/19 11:10 Tums PO Q6H PRN Indigestion Dextrose 12.5 gm 10/26/19 21:17 Dextrose 50% Syringe IV PUSH PRN PRN Hypoglycemia Protocol Enoxaparin Sodium 30 mg 10/26/19 21:00 10/28/19 09:01 Lovenox SUB-Q 30 mg Q12HR KENYA Administration Fluoxetine HCl 10 mg 10/27/19 09:00 10/28/19 09:00 Prozac PO 10 mg DAILY KENYA Administration Furosemide 40 mg 10/27/19 09:00 10/27/19 09:30 Lasix Tablet PO 40 mg BID KENYA Administration Glimepiride 2 mg 10/27/19 08:00 10/28/19 09:01 Amaryl PO 2 mg BIDWM KENYA Administration Glucagon 1 mg 10/26/19 21:17 Glucagon For Inj IM PRN PRN Hypoglycemia Protocol Glucose 15 gm 10/26/19 21:17 Glutose 15 PO PRN PRN Hypoglycemia Protocol Hydrochlorothiazide 12.5 mg 10/27/19 09:00 10/28/19 09:00 Hydrochlorothiazide PO 12.5 mg DAILY KENYA Administration Hydromorphone HCl 1 mg 10/26/19 16:11 10/27/19 02:35 Dilaudid Inj IV PUSH 1 mg Q2H PRN Administration Pain Rated 7-10 Hydromorphone HCl 0.5 mg 10/26/19 16:11 Dilaudid Inj IV PUSH Q2H PRN Pain Rated 4-6 Dextrose 1,000 mls @ 100 mls/hr 10/26/19 21:17 Dextrose 5% 1,000 Ml IVPB PRN PRN Hypoglycemia Protocol Insulin Aspart 2 - 5 units 10/27/19 08:00 10/28/19 12:30 Novolog SUB-Q 3 units TIDWM KENAY Administration Protocol Insulin Glargine 16 units 10/26/19 21:00 10/28/19 09:09 L
[2019-10-28 14:35] VITALS: BP 133/52; PULSE 65; RESP 15; TEMP 36.9; O2SAT 100
[2019-10-28 18:24] VITALS: BP 152/72; PULSE 73; RESP 16; TEMP 36.5; O2SAT 95
[2019-10-28] MEDS: FUROSEMIDE 40 MG TABLET PO (18:28)
[2019-10-28 18:31] LABS: Glucose Point of Care 169 (65-105)
[2019-10-28 21:45] VITALS: BP 151/74; PULSE 79; RESP 16; TEMP 36.1; O2SAT 100
[2019-10-28] MEDS: AMLODIPINE BESYLATE 5 MG TABLET 10 MG PO (22:20)
[2019-10-28 22:48] LABS: Glucose Point of Care 288 (65-105)
[2019-10-29 06:00] VITALS: BP 145/57; PULSE 70; RESP 16; TEMP 36.3; O2SAT 100
[2019-10-29 06:00] LABS: Basophils Absolute Auto 0.1 K/mm3 (0.0-0.1); Basophils Percent Auto 0.4 % (0.2-1.2); Eosinophils Absolute Auto 0.6 K/mm3 (0-0.3); Eosinophils Percent Auto 4.4 % (0-4.4); Hematocrit 36.1 % (37.0-47.0); Hemoglobin 11.7 g/dL (12.0-15.0); Immature Granulocyte Absolute 0.14 K/mm3 (0.00-0.031); Lymphocytes Absolute Auto 4.22 K/mm3 (0.9-3.2); Lymphocytes Percent Auto 31.2 % (18.3-44.2); Mean Corpuscular HGB Conc 32.4 g/dl (32-36); Mean Corpuscular Hemoglobin 28.4 pg (26-34); Mean Corpuscular Volume 87.6 fl (80-100); Mean Platelet Volume 11.1 fl (7.4-10.4); Monocytes Absolute Auto 1.1 K/mm3 (0.1-0.6); Monocytes Percent Auto 8.2 % (2.6-8.5); Neutrophils Absolute Auto 7.4 K/mm3 (1.3-6.7); Neutrophils Percent Auto 54.8 % (45.5-73.1); Platelet Count Result 276 k/mm3 (150-375); Red Blood Count 4.12 M/mm3 (4.2-5.4); Red Cell Distribution Width 14.7 % (11.5-14.5); White Blood Count 13.5 K/mm3 (4.5-10.0)
[2019-10-29 06:10] LABS: Alanine Aminotransferase 21 U/L (4-35); Albumin Level 3.2 g/dL (3.5-5.1); Alkaline Phosphatase 76 U/L (38-126); Aspartate Amino Transferase 36 U/L (14-36); Bilirubin,Total 0.5 mg/dL (0.2-1.3); Blood Urea Nitrogen 18 mg/dL (7-17); Calcium 7.9 mg/dL (8.4-10.2); Carbon Dioxide 30 mmol/L (22-30); Chloride 99 mmol/L (98-107); Estimated CRCL calculation 85 ml/min; Estimated Glomerular Filt Rate > 60; Glucose 141 mg/dL (65-105); Potassium 3.4 mmol/L (3.4-5.0); Sodium 135 mmol/L (137-145)
[2019-10-29 09:01] LABS: Glucose Point of Care 145 (65-105)
[2019-10-29] MEDS: ENOXAPARIN 30 MG/0.3 ML SYRINGE SUB-Q (09:35)
[2019-10-29 09:36] VITALS: PULSE 92
[2019-10-29] MEDS: METOPROLOL SUCCINATE EXT REL 100 MG TABCR PO (09:36)
[2019-10-29] MEDS: FUROSEMIDE 40 MG TABLET PO (09:38)
[2019-10-29] MEDS: GLIMEPIRIDE 2 MG TABLET PO (09:38)
[2019-10-29] MEDS: hydroCHLOROthiazide 12.5 MG CAPSULE PO (09:38)
[2019-10-29] MEDS: PANTOPRAZOLE 40 MG TABLET PO (09:38)
[2019-10-29] MEDS: LOSARTAN POTASSIUM 100 MG TABLET PO (09:38)
[2019-10-29] MEDS: MULTIVITAMINS THERAPEUTIC TAB (*BKC) 1 TABLET PO (09:38)
[2019-10-29] MEDS: FLUOXETINE HCL 10 MG CAPSULE PO (09:38)
[2019-10-29] MEDS: INSULIN GLARGINE (*BKC) 100 UNITS/ML 16 UNITS SUB-Q (09:41)
[2019-10-29 09:54] VITALS: O2SAT 95
--- NOTE | 2019-10-29 11:09 | PM.IMPN ---
Progress Note: A&P Assessment and Plan (1) Cancer of descending colon: Code(s): C18.6 - Malignant neoplasm of descending colon Status: Acute Assessment and Plan: The patient underwent hand assisted laparoscopic left hemicolectomy with hand-sewn anastomosis 10/26/[address] Wells. She is POD #3. Patient is ambulating, pain is well controlled, and she appears to be doing well. She is tolerating a soft diet. Postop care per general surgery. Dietary advancement per general surgery. (2) Type 2 diabetes mellitus with hyperglycemia: Code(s): E11.65 - Type 2 diabetes mellitus with hyperglycemia Status: Acute Assessment and Plan: Her blood sugars have been elevated since admission as high as 352. Updated A1c is 8.3. Readings have improved. Fasting blood glucose today was mildly elevated at 145. Continue accuchecks ACHS, SSI, and hypoglycemia protocol Continue to hold metformin and trulicity which is non-formulary Continue glimepiride (3) CHF (congestive heart failure): Qualifiers: Heart failure type: unspecified Heart failure chronicity: unspecified Qualified Code(s): I50.9 - Heart failure, unspecified Code(s): I50.9 - Heart failure, unspecified Status: Acute Assessment and Plan: Patient has a documented history of CHF but no prior echo or BNP is available for review. CT chest reveals cardiomegaly. She appears generally euvolemic on exam with some mild lower extremity edema Continue with metoprolol, losartan, and Lasix (resumed on 10/28/19) (4) Essential (primary) hypertension: Code(s): I10 - Essential (primary) hypertension Status: Acute Assessment and Plan: Blood pressures were reviewed and are somewhat elevated but acceptable. Blood pressure today is 145/57 prior to administration of antihypertensive medication. Continue with losartan, HCTZ, Norvasc, metoprolol, and Lasix Continue to monitor blood pressures closely. (5) MDD (major depressive disorder), recurrent episode, moderate: Code(s): F33.1 - Major depressive disorder, recurrent, moderate Status: Acute Assessment and Plan: Stable at this time. Continue with Prozac (6) Hypokalemia: Code(s): E87.6 - Hypokalemia Status: Acute Assessment and Plan: Patient developed hypokalemia postoperatively, probably due to reduced oral intake. Potassium was replaced and is now stable at 3.4. Continue to monitor potassium levels Subjective Date/time seen: 10/29/19 11:09 Interval history: Date of service: 10/29/2019 She reports she is feeling well today. Her pain is well controlled and she only endorses pain with rotational movement or coughing. She has been tolerating a soft diet. She has been ambulating without difficulty. She has been having loose stools and has had 2 loose bowel movements today. She is urinating regularly. She slept well last night. She has no acute concerns. She denies shortness of breath, chest pain, cough, palpitations, dizziness, lightheadedness, or weakness. Review of Systems Review of Systems: Narrative: A 12 point review of systems was reviewed with pertinent positives and negatives as per HPI. Exam Narrative: Exam Narrative: Ms. Helms is examined alone today. She is an obese 68-year-old female who is sitting up in a chair by the bedside eating lunch. She appears comfortable and is in no acute respiratory distress. HR 70, BP 145/57, RR 16, T 97.4?, 100% room air Neuro: awake, alert and oriented x4, speech clear, no focal neuro deficits noted HEENMT: normocephalic, atraumatic, EOMI, sclerae anicteric, moist oral mucosa, normal oropharynx Neck: supple, no lymphadenopathy Respiratory: clear to auscultation bilaterally, normal respiratory effort without accessory muscle use Cardio: regular rate, regular rhythm, normal S1 and S2 Abdomen: normal to inspection with midline lucas
--- NOTE | 2019-10-29 11:22 | PM.DS ---
DS: Admitting Diagnosis Admitting Diagnosis Admitting Diagnosis: Malignant neoplasm of descending colon DS: Discharge Diagnosis Discharge Diagnosis (1) Cancer of descending colon: Code(s): C18.6 - Malignant neoplasm of descending colon Status: Acute (2) Type 2 diabetes mellitus with hyperglycemia: Code(s): E11.65 - Type 2 diabetes mellitus with hyperglycemia Status: Acute (3) Morbid obesity: Code(s): E66.01 - Morbid (severe) obesity due to excess calories Status: Acute (4) CHF (congestive heart failure): Qualifiers: Heart failure type: unspecified Heart failure chronicity: unspecified Qualified Code(s): I50.9 - Heart failure, unspecified Code(s): I50.9 - Heart failure, unspecified Status: Acute DS: Summary Hospital Course Reason for hospitalization: Descending colon cancer Hospital Course: This is a 68-year-old woman who presented with a recent finding of colon cancer. She had a positive color guard screening test done earlier this year colonoscopy with Dr. Isaac on 07/29/2019. A large polyp was removed and tattooed in the descending colon. Pathology showed adenocarcinoma invading submucosa with invasive carcinoma extending to cauterized edges of polyp fragments. She now presented for colon resection. She underwent hand assisted laparoscopic left hemicolectomy with anastomosis and mobilization of splenic flexure on 10/26/2019. She was admitted postoperatively for recovery. The hospitalist was consulted to manage multiple medical problems. She was placed on sliding scale insulin and was started on clear liquid diet postoperatively. On postop day 1 she was tolerating the diet without any nausea or vomiting. Her bowels were already moving. She was advanced to a full liquid diet on postop day 1, and then was advanced to a soft diet on postop day 2. She tolerated advancement of her diet without any difficulty. She remained hemodynamically stable throughout her hospital stay. Her blood sugars were slightly elevated at times but overall adequately controlled. She was gradually restarted on her home medications to help with control of her hypertension and diabetes. On postop day 3 she was tolerating a soft diet and was ambulating without much difficulty. Her incisions were healing well without any wound openings or signs of infection. Final pathology showed evidence of a T1 N0 M0 descending colon adenocarcinoma. 0 of 10 lymph nodes were positive. Margins were clear of any cancer. Discussed results with patient and that she will not likely require any chemotherapy. Patient was discharged on postop day 3. Status at Discharge Functional status at discharge: independent ambulation Overall status at discharge: patient is progressing back to baseline Time Spent with Patient Time attestation: Total time spent providing and/or coordinating discharge services: Time spent: Less than 30 minutes Exam Const: General: no acute distress Resp: Auscultation: clear to auscultation bilaterally Cardio: Rate: regular rate Rhythm: regular rhythm GI: Inspection: non-distended GI Palp: Yes Soft to palpation and No Tenderness to palpation present (GI) Auscultation: normal bowel sounds DS: Data Data Completed and Pending Completed studies during hospitalization: Pending at discharge 10/26/19 13:35 Surgical [PTH] Routine Labs on day of discharge: Labs from last 24 hours 10/29/19 10/29/19 10/29/19 08:59 05:21 05:21 WBC 13.5 H RBC 4.12 L Hgb 11.7 L Hct 36.1 L MCV 87.6 MCH 28.4 MCHC 32.4 RDW 14.7 H Plt Count 276 MPV 11.1 H Immature Gran % (Auto) 1.0 H Neut % (Auto) 54.8 Lymph % (Auto) 31.2 Divide % (Auto) 8.2 Eos % (Auto) 4.4 Baso % (Auto) 0.4 Lymph # (Auto) 4.22 H Divide # (Auto) 1.1 H Eos # (Auto) 0.6 H Baso # (Auto) 0.1 Abs Immat Gran (auto) 0.14 H Absolute Neuts (auto) 7.4 H Absolute N
== END 2019-10-29 13:00 | disposition home or self-care (01) | DRG 330 ==
LOC: ANH3MEDSUR 16:16
PROVIDERS: Nurse Practitioner Family; Physician Assistant; Admitting Provider Surgery; PCP Family Medicine; Visit Provider Surgery
PROC: 0D1E4Z4 Bypass Large Intestine to Cutaneous, Percutaneous Endoscopic Approach (ICD-10-PCS; principal; 2019-10-26 11:30)
DX: C18.6 Malignant neoplasm of descending colon (principal); Z68.43 Body mass index [BMI] 50.0-59.9, adult; I50.32 Chronic diastolic (congestive) heart failure; I11.0 Hypertensive heart disease with heart failure; E66.01 Morbid (severe) obesity due to excess calories; E11.65 Type 2 diabetes mellitus with hyperglycemia; G47.33 Obstructive sleep apnea (adult) (pediatric); E11.42 Type 2 diabetes mellitus with diabetic polyneuropathy; F32.9 Major depressive disorder, single episode, unspecified; F41.9 Anxiety disorder, unspecified; E78.2 Mixed hyperlipidemia; E87.6 Hypokalemia; Z96.653 Presence of artificial knee joint, bilateral; Z90.49 Acquired absence of other specified parts of digestive tract
CPT/HCPCS: 36415; 80048; 80053; 83036; 85025; 87635; 88307; 88309; A9270; C1729; C9290; C9803; J0131; J0330; J0690; J1170; J1650; J1741; J1815; J2250; J2370; J2405; J2704; J2710; J3010; J7030; J7120; U0003

== ENCOUNTER 2019-12-15 10:30 | Outpatient (RCR) | payer MEDICARE, SELFPAY | END 2020-01-19 23:59 | disposition home or self-care (01) | LOC: ANHDMC 10:30 | PROVIDERS: PCP Family Medicine | DX: E11.42 Type 2 diabetes mellitus with diabetic polyneuropathy (principal); E11.65 Type 2 diabetes mellitus with hyperglycemia; E78.2 Mixed hyperlipidemia; I10 Essential (primary) hypertension; Z71.89 Other specified counseling | CPT/HCPCS: G0108 ==

== ENCOUNTER 2020-06-29 15:17 | Outpatient (RCR) | payer MEDICARE, SELFPAY | END 2020-06-29 16:10 | disposition home or self-care (01) | LOC: ANHDMC 15:17 | PROVIDERS: PCP Family Medicine | DX: E11.42 Type 2 diabetes mellitus with diabetic polyneuropathy (principal); E11.65 Type 2 diabetes mellitus with hyperglycemia; Z71.89 Other specified counseling | CPT/HCPCS: G0108 ==

== ENCOUNTER 2020-07-31 17:17 | Outpatient (CLI) | payer MEDICARE, SELFPAY | END 2020-07-31 17:18 | disposition home or self-care (01) | LOC: ANHCOVIDVC 17:17 | PROVIDERS: PCP Family Medicine | DX: Z23 Encounter for immunization (principal) | CPT/HCPCS: 0001A; 91300 ==

== ENCOUNTER 2020-08-21 16:53 | Outpatient (CLI) | payer MEDICARE, SELFPAY | END 2020-08-21 16:54 | disposition home or self-care (01) | LOC: ANHCOVIDVC 16:53 | PROVIDERS: PCP Family Medicine | DX: Z23 Encounter for immunization (principal) | CPT/HCPCS: 0002A; 91300 ==

== ENCOUNTER 2020-11-29 01:10 | Day surgery (SDC) | payer MEDICARE, SELFPAY ==
[2020-11-13 13:44] VITALS: BMI 51.6
--- NOTE | 2020-11-28 13:54 | WPDANESEPPF ---
Anes - Initial Pre Proc Eval Procedure: Operation Date: 11/29/20 07:30 Proposed Procedures p Esophagogastroduodenoscopy & Screening Colonoscopy - Vipul Parsons MD Date/Time: 11/28/20 13:54 Surgeon: Vipul Parsons MD Pre Op Diagnosis: hx colon polyps, esophagitis Patient Data Age: 69 Gender: F Height: 1.52 m Weight: 120 kg Allergies Allergy/AdvReac Type Severity Reaction Status Date / Time codeine Allergy Intermediate Itching Verified 11/29/20 06:24 Home Medications Medication Instructions Recorded Confirmed Type multivitamin 1 tablet PO DAILY 08/05/19 11/13/20 History albuterol sulfate 0.63 mg INHALATION Q4H PRN 10/18/19 11/13/20 History flash glucose scanning reader #1 each 02/17/20 10/31/20 Rx flash glucose sensor #2 each 02/17/20 10/31/20 Rx furosemide 40 mg tablet 40 mg PO BID #180 tablet 07/31/20 11/13/20 Rx losartan 100 1 tablet PO DAILY #90 tablet 07/31/20 11/13/20 Rx mg-hydrochlorothiazide 12.5 mg tablet amlodipine 10 mg tablet 10 mg PO HS #90 tablet 09/20/20 11/13/20 Rx metformin 500 mg tablet,extended 1,000 mg PO BID #360 tablet 10/07/20 11/13/20 Rx release 24 hr metoprolol succinate 100 mg 100 mg PO DAILY #90 tablet 10/09/20 11/13/20 Rx tablet,extended release 24 hr omeprazole 20 mg capsule,delayed 20 mg PO BID #180 cap 10/09/20 11/13/20 Rx release pen needle, diabetic 32 gauge x #100 each 10/09/20 10/31/20 Rx 1/4 blood sugar diagnostic #300 ea 10/31/20 10/31/20 Rx fluoxetine 40 mg capsule 40 mg PO DAILY #90 cap 10/31/20 11/13/20 Rx insulin aspart U-100 100 unit/mL See Rx Instructions SUBCUT TID #20 10/31/20 11/13/20 Rx (3 mL) subcutaneous pen ml rosuvastatin 20 mg tablet 20 mg PO DAILY 10/31/20 11/13/20 History insulin glargine 100 unit/mL (3 23 unit SUB-Q .am and pm 90 Days 11/25/20 Rx mL) subcutaneous pen #15 ml Patient hx anesthesia problems: none Family hx anesthesia problems: none PMFSH Past Medical History Medical History Anxiety CHF (congestive heart failure) Chronic diastolic heart failure Diabetes mellitus with diabetic neuropathy, with long-term current use of insulin Dyspepsia Essential (primary) hypertension Family history of esophageal cancer MDD (major depressive disorder), recurrent episode, moderate Morbid obesity NICOLAS (obstructive sleep apnea) NO CPAP Positive colorectal cancer screening using Cologuard test Type 2 diabetes mellitus with diabetic polyneuropathy, without long-term current use of insulin Surgical History Surgical History History of bilateral knee arthroplasty 6 years for r , 6 years for l History of bowel resection 10/26/2019 hand assisted laparoscopic left hemicolectomy with hand-sewn anastomosis. Laparoscopic mobilization of splenic flexure History of carpal tunnel release 20 years ago History of cholecystectomy 30 years ago History of left hemicolectomy Laparoscopic moblization of splenic flexure hand assisted laparoscopic left hemicolectomy with hand sewn amastomosis lap mobilization of splenic flexure 10/26/19 Family History Family History Sibling Diabetes mellitus Family history of cardiovascular disease Throat cancer Brother Father Family history of cardiovascular disease Family history of arthritis Family history of malignant neoplasm, Onset Age: 65 Throat cancer Mother Family history of lung disease, Onset Age: 71 COPD (chronic obstructive pulmonary disease) Unknown Diabetes mellitus Cancer Hypertension Social History Social History (Updated 10/31/20 @ 09:22 by Rocio Holcomb) Social History: The patient is . She is retired from the [employer]. Lifelong nonsmoker no alcohol marijuana or illicit drugs. She is a full code. She does not wa
[2020-11-29 06:26] VITALS: BP 163/58; PULSE 85; RESP 22; TEMP 36.1; O2SAT 100
[2020-11-29] MEDS: LACTATED RINGERS 1,000 ML 150 ML IV CONT (06:42)
[2020-11-29 06:47] LABS: Glucose Point of Care 203 mg/dl (65-105)
--- NOTE | 2020-11-29 07:33 | PM.HPGS ---
History of Present Illness History of Present Illness Consent: Risks, benefits, and alternatives have been discussed and questions answered. Patient agrees to proceed with procedure. Chief complaint: hx colon polyps, esophagitis Narrative: Rosa Isela Helms is a 69 year old female with left sided colon cancer diagnosed 07/2019 s/p lt hemicolectomy, also erosive esophagitis. Here to reassess Review of Systems Constitutional: Constitutional: Denies headache(s) and Denies weakness Eyes: Eyes: Denies blurry vision ENT: Reports Normal hearing present, Denies headache(s) and Denies neck pain Cardiovascular: Cardiovascular: Denies chest pain and Denies dyspnea Respiratory: Respiratory: Denies dyspnea Gastrointestinal: Gastrointestinal: Reports no additional gastrointestinal complaints Genitourinary: Genitourinary: Denies dysuria Musculoskeletal: Musculoskeletal: Denies neck pain Integumentary/Breasts: Skin/Breast: Denies dry skin Neurologic: Reports Normal hearing present, Denies headache(s) and Denies weakness Psychiatric: Psychiatric: Denies anxiety Endocrine: Endocrine: Denies change in body appearance Hematologic/Lymphatic: Hematologic/Lymphatic: Denies easy bleeding Allergic/Immunologic: Allergic/Immunologic: Denies urticaria PMFSH Past Medical History Medical History (Updated 11/29/20 @ 07:34 by Vipul Parsons MD) Anxiety CHF (congestive heart failure) Chronic diastolic heart failure Diabetes mellitus with diabetic neuropathy, with long-term current use of insulin Dyspepsia Esophagitis Essential (primary) hypertension Family history of esophageal cancer MDD (major depressive disorder), recurrent episode, moderate Morbid obesity NICOLAS (obstructive sleep apnea) NO CPAP Positive colorectal cancer screening using Cologuard test Type 2 diabetes mellitus with diabetic polyneuropathy, without long-term current use of insulin Surgical History Surgical History History of bilateral knee arthroplasty 6 years for r , 6 years for l History of bowel resection 10/26/2019 hand assisted laparoscopic left hemicolectomy with hand-sewn anastomosis. Laparoscopic mobilization of splenic flexure History of carpal tunnel release 20 years ago History of cholecystectomy 30 years ago History of left hemicolectomy Laparoscopic moblization of splenic flexure hand assisted laparoscopic left hemicolectomy with hand sewn amastomosis lap mobilization of splenic flexure 10/26/19 Family History Family History Sibling Diabetes mellitus Family history of cardiovascular disease Throat cancer Brother Father Family history of cardiovascular disease Family history of arthritis Family history of malignant neoplasm, Onset Age: 65 Throat cancer Mother Family history of lung disease, Onset Age: 71 COPD (chronic obstructive pulmonary disease) Unknown Diabetes mellitus Cancer Hypertension Social History Social History (Updated 10/31/20 @ 09:22 by Rocio Holcomb) Social History: The patient is . She is retired from the [employer]. Lifelong nonsmoker no alcohol marijuana or illicit drugs. She is a full code. She does not want to live like a vegetable. Her biological child is her durable power senior warehouse clerk for healthcare. She also has 1 stepchild. Smoking status: Never smoker Second hand tobacco smoke exposure: No Alcohol intake: never Substance use: never Substance use type: does not use Living arrangements: with family Additional living arrangements comments: Pt daughter and granddaughter live with her. Gender identity (if verbalized by the patient): Female Sexual Orientation (if Verbalized by the Patient): Straight or Heterosexual Spiritual care concerns: No Meds Home Medications and Allergies Home Medic
[2020-11-29] MEDS: BENZOCAINE (*SP) 60 ML SPRAY CAN (HURRICAINE) 1 SPRAY MUCOUS MEM (07:42)
[2020-11-29 08:14] VITALS: BP 126/60; PULSE 68; RESP 24; O2SAT 100
[2020-11-29 08:24] VITALS: BP 136/58; PULSE 67; RESP 22; O2SAT 100
[2020-11-29 08:34] VITALS: BP 126/57; PULSE 62; RESP 22; O2SAT 100
[2020-11-29 08:37] LABS: Glucose Point of Care 192 mg/dl (65-105)
== END 2020-11-29 08:48 | disposition home or self-care (01) ==
PROVIDERS: PCP Family Medicine; Visit Provider Internal Medicine Gastroenterology
PROC: 0DJ08ZZ Inspection of Upper Intestinal Tract, Via Natural or Artificial Opening Endoscopic (ICD-10-PCS; CPT 43235; principal; 2020-11-29 07:30)
DX: Z12.11 Encounter for screening for malignant neoplasm of colon (principal); D12.2 Benign neoplasm of ascending colon; D12.3 Benign neoplasm of transverse colon; D12.4 Benign neoplasm of descending colon; K64.8 Other hemorrhoids; Z85.038 Personal history of other malignant neoplasm of large intestine; Z90.49 Acquired absence of other specified parts of digestive tract; Z98.0 Intestinal bypass and anastomosis status; I11.0 Hypertensive heart disease with heart failure; I50.32 Chronic diastolic (congestive) heart failure; E11.42 Type 2 diabetes mellitus with diabetic polyneuropathy; F33.1 Major depressive disorder, recurrent, moderate; F41.9 Anxiety disorder, unspecified; G47.33 Obstructive sleep apnea (adult) (pediatric); E66.01 Morbid (severe) obesity due to excess calories; Z68.43 Body mass index [BMI] 50.0-59.9, adult; Z79.51 Long term (current) use of inhaled steroids; Z79.84 Long term (current) use of oral hypoglycemic drugs; Z79.4 Long term (current) use of insulin
CPT/HCPCS: 45380; 45385; 82948; 88305; J2704; J7120

== ENCOUNTER 2022-04-19 08:13 | Outpatient (CLI) | payer MEDICARE, SELFPAY ==
--- NOTE | ~2022-04-19 | US_ITS ---
US renal BI 04/19/2022 09:08 Procedure: Realtime transabdominal ultrasound of the kidneys and bladder. Indication: Renal cyst. Comparison: 08/18/2019 Findings: Renal echotexture is normal bilaterally without hydronephrosis, contour deforming mass or r enal calculus. The right kidney measures 9 cm and left kidney measures 10.6 cm. The cyst seen at the lower pole of the left kidney on prior CT is not visualized on the current study. Bladder within norm al limits. Incidental note is made of fatty infiltration of the liver. Impression: 1: Unremarkable renal ultrasound. No stones, masses or hydronephrosis. 2: Left renal cyst 3: Hepatic steatosis. Seen on prior CT not visualized on the current study. Reviewed, dictated and finalized at location A. [employer] Impression: 1: Unremarkable renal ultrasound. No stones, masses or hydronephrosis. 2: Left renal cyst 3: Hepatic steatosis. Seen on prior CT not visualized on the current study.
== END 2022-04-19 08:14 | disposition home or self-care (01) ==
PROVIDERS: PCP Family Medicine; Visit Provider Family Medicine
DX: N28.1 Cyst of kidney, acquired (principal); K76.0 Fatty (change of) liver, not elsewhere classified
CPT/HCPCS: 76775

== ENCOUNTER 2023-02-26 02:56 | Day surgery (SDC) | payer MEDICARE, SELFPAY ==
--- NOTE | 2023-01-21 09:15 | PC.NURSE ---
Pt. called and has not been feeling well, body aches, congestion and cough. Resched. to 03/03/2023, encouraged to call PCP to be tested for covid.
[2023-02-17 09:42] VITALS: BMI 51.2
[2023-02-26 09:39] VITALS: BP 127/56; PULSE 78; RESP 18; TEMP 36.4; O2SAT 99; BMI 50.7
[2023-02-26] MEDS: LACTATED RINGERS 1,000 ML 150 ML IV CONT (09:59)
[2023-02-26 10:00] LABS: Glucose Point of Care 116 mg/dl (65-105)
--- NOTE | 2023-02-26 10:17 | PM.HPGS ---
History of Present Illness History of Present Illness Consent: Risks, benefits, and alternatives have been discussed and questions answered. Patient agrees to proceed with procedure. Chief complaint: hx colon polyps Narrative: Rosa Isela Helms is a 72 year old female with h/o left sided colon cancer diagnosed 07/2019 s/p lt hemicolectomy 2019, last colonoscopy 2020 with polyps removed. Review of Systems Constitutional: Constitutional: Denies headache(s) and Denies weakness Eyes: Eyes: Denies blurry vision ENT: Reports Normal hearing present, Denies headache(s) and Denies neck pain Cardiovascular: Cardiovascular: Denies chest pain and Denies dyspnea Respiratory: Respiratory: Denies dyspnea Gastrointestinal: Gastrointestinal: Reports no additional gastrointestinal complaints Genitourinary: Genitourinary: Denies dysuria Musculoskeletal: Musculoskeletal: Denies neck pain Integumentary/Breasts: Skin/Breast: Denies dry skin Neurologic: Reports Normal hearing present, Denies headache(s) and Denies weakness Psychiatric: Psychiatric: Denies anxiety Endocrine: Endocrine: Denies change in body appearance Hematologic/Lymphatic: Hematologic/Lymphatic: Denies easy bleeding Allergic/Immunologic: Allergic/Immunologic: Denies urticaria PMFSH Past Medical History Medical History (Updated 02/26/23 @ 10:18 by Vipul Parsons MD) Anxiety CHF (congestive heart failure) Chronic diastolic heart failure Diabetes mellitus with diabetic neuropathy, with long-term current use of insulin Dyspepsia Esophagitis Essential (primary) hypertension Family history of esophageal cancer History of malignant neoplasm of colon MDD (major depressive disorder), recurrent episode, moderate Morbid obesity NICOLAS (obstructive sleep apnea) NO CPAP Positive colorectal cancer screening using Cologuard test Type 2 diabetes mellitus with diabetic polyneuropathy, without long-term current use of insulin Surgical History Surgical History History of bilateral knee arthroplasty 6 years for r , 6 years for l History of bowel resection 10/26/2019 hand assisted laparoscopic left hemicolectomy with hand-sewn anastomosis. Laparoscopic mobilization of splenic flexure History of carpal tunnel release 20 years ago History of cholecystectomy 30 years ago History of left hemicolectomy Laparoscopic moblization of splenic flexure hand assisted laparoscopic left hemicolectomy with hand sewn amastomosis lap mobilization of splenic flexure 10/26/19 Family History Family History Sibling Diabetes mellitus Family history of cardiovascular disease Throat cancer Brother Father Family history of cardiovascular disease Family history of arthritis Family history of malignant neoplasm, Onset Age: 65 Throat cancer Mother Family history of lung disease, Onset Age: 71 COPD (chronic obstructive pulmonary disease) Unknown Diabetes mellitus Cancer Hypertension Social History Social History Social History: The patient is . She is retired from the [employer]. Lifelong nonsmoker no alcohol marijuana or illicit drugs. She is a full code. She does not want to live like a vegetable. Her biological child is her durable power associate attorney for healthcare. She also has 1 stepchild. Smoking status: Never smoker Second hand tobacco smoke exposure: No Alcohol intake: never Substance use: never Substance use type: does not use Lack of Transportation: No Lack of Food: Never True Current Housing: I Have Housing Concerned About Future Housing: No Difficulty Paying Gas/Electric Bills: No Difficulty Paying for Meds: No Currently Unemployed: YES Education: Decline to Answer Difficulty w/ Childcare or Family Care: No
--- NOTE | 2023-02-26 10:18 | WPDANESEPPF ---
Anes - Initial Pre Proc Eval Procedure: Operation Date: 02/26/23 10:30 Proposed Procedures p Colonoscopy - Vipul Parsons MD Date/Time: 02/26/23 10:18 Surgeon: Vipul Parsons MD Pre Op Diagnosis: hx colon polyps Patient Data Age: 72 Gender: F Height: 1.55 m Weight: 121.8 kg Last Vital Signs Temp 97.6 F 02/26/23 09:39 Pulse 78 02/26/23 09:39 Resp 18 02/26/23 09:39 BP 127/56 L 02/26/23 09:39 Pulse Ox 99 02/26/23 09:39 O2 Del Method Room Air 02/26/23 09:39 Allergies Allergy/AdvReac Type Severity Reaction Status Date / Time codeine Allergy Intermediate Itching Verified 02/26/23 09:46 Home Medications Medication Instructions Recorded Confirmed Type multivitamin (Daily Multi-Vitamin 1 tablet PO DAILY 08/05/19 02/26/23 History tablet) flash glucose scanning reader #1 ea 02/17/20 02/26/23 Rx (FreeStyle Patricio 14 Day [place]) flash glucose sensor (FreeStyle #2 ea 02/17/20 02/26/23 Rx Patricio 14 Day Sensor kit) pen needle, diabetic 32 gauge x #100 ea 10/09/20 02/26/23 Rx 1/4 (Comfort EZ Pen [place]) amlodipine 10 mg tablet See Rx Instructions .Route 09/16/22 02/26/23 Rx .COMPLEX #100 tabs fluoxetine 40 mg capsule See Rx Instructions .Route 10/02/22 02/26/23 Rx .COMPLEX #90 caps carvedilol 25 mg tablet See Rx Instructions .Route 10/10/22 02/26/23 Rx .COMPLEX #180 tabs insulin glargine 100 unit/mL (3 See Rx Instructions .Route 11/12/22 02/26/23 Rx mL) subcutaneous pen (Lantus .COMPLEX #15 mL Solostar U-100 Insulin) metformin 500 mg tablet,extended See Rx Instructions .Route 12/18/22 02/26/23 Rx release 24 hr .COMPLEX #400 tabs insulin lispro 100 unit/mL See Rx Instructions .Route 12/20/22 02/26/23 Rx subcutaneous pen (Humalog KwikPen .COMPLEX #30 mL (U-100) Insulin) furosemide 40 mg tablet See Rx Instructions .Route 12/23/22 02/26/23 Rx .COMPLEX #100 tabs rosuvastatin 20 mg tablet See Rx Instructions .Route 12/23/22 02/26/23 Rx .COMPLEX #100 tabs blood sugar diagnostic (OneTouch #300 ea 12/31/22 02/26/23 Rx Verio test strips) buspirone 10 mg tablet 10 mg PO TID #270 tabs 01/29/23 02/26/23 Rx albuterol sulfate 90 mcg/actuation 1 inh inhalation Q4H PRN shortness 02/07/23 02/26/23 Rx aerosol inhaler of breath or wheezing #6.7 grams losartan 100 mg tablet See Rx Instructions .Route 02/17/23 02/26/23 Rx .COMPLEX #100 tabs omeprazole 20 mg capsule,delayed See Rx Instructions .Route 02/17/23 02/26/23 Rx release .COMPLEX #200 caps Laboratory Tests 02/26/23 09:57 POC Capillary Glucose 116 H mg/dl (65-105) Patient hx anesthesia problems: none Family hx anesthesia problems: none Results Review: All pre-operative results and documents have been reviewed as part of the pre-operative evaluation. [facility] Past Medical History Medical History (Updated 02/26/23 @ 10:18 by Vipul Parsons MD) Anxiety CHF (congestive heart failure) Chronic diastolic heart failure Diabetes mellitus with diabetic neuropathy, with long-term current use of insulin Dyspepsia Esophagitis Essential (primary) hypertension Family history of esophageal cancer History of malignant neoplasm of colon MDD (major depressive disorder), recurrent episode, moderate Morbid obesity NICOLAS (obstructive sleep apnea) NO CPAP Positive colorectal cancer screening using Cologuard test Type 2 diabetes mellitus with diabetic polyneuropathy, without long-term current use of insulin Surgical History Surgical History History of bilateral knee arthroplasty 6 years for r , 6 years for l History of bowel resection 10/26/2019 hand assisted laparoscopic left hemicolectomy with hand-sewn anastomosis. Laparoscopic mobilization of splenic flexure History of carpal tunnel release 20 years ago History of cholecystectomy 30 years ago History of left hemicolectomy Laparoscopic m
[2023-02-26 11:03] VITALS: BP 107/49; PULSE 63; RESP 15; O2SAT 99
[2023-02-26 11:13] VITALS: BP 123/59; PULSE 58; RESP 22; O2SAT 98
[2023-02-26 11:17] LABS: Glucose Point of Care 82 mg/dl (65-105)
[2023-02-26 11:23] VITALS: BP 132/57; PULSE 57; RESP 19; O2SAT 100
== END 2023-02-26 11:36 | disposition home or self-care (01) ==
PROVIDERS: PCP Family Medicine; Visit Provider Internal Medicine Gastroenterology
PROC: 0DJD8ZZ Inspection of Lower Intestinal Tract, Via Natural or Artificial Opening Endoscopic (ICD-10-PCS; CPT 45378; principal; 2023-02-26 10:30)
DX: Z08 Encounter for follow-up examination after completed treatment for malignant neoplasm (principal); D12.4 Benign neoplasm of descending colon; D12.0 Benign neoplasm of cecum; K64.8 Other hemorrhoids; Z85.038 Personal history of other malignant neoplasm of large intestine; Z90.49 Acquired absence of other specified parts of digestive tract; Z98.0 Intestinal bypass and anastomosis status; F41.9 Anxiety disorder, unspecified; I11.0 Hypertensive heart disease with heart failure; I50.32 Chronic diastolic (congestive) heart failure; E11.40 Type 2 diabetes mellitus with diabetic neuropathy, unspecified; F33.1 Major depressive disorder, recurrent, moderate; G47.33 Obstructive sleep apnea (adult) (pediatric); Z79.4 Long term (current) use of insulin; Z79.84 Long term (current) use of oral hypoglycemic drugs; Z79.51 Long term (current) use of inhaled steroids; E66.01 Morbid (severe) obesity due to excess calories; Z68.43 Body mass index [BMI] 50.0-59.9, adult; Z80.0 Family history of malignant neoplasm of digestive organs; Z80.2 Family history of malignant neoplasm of other respiratory and intrathoracic organs
CPT/HCPCS: 45385; 82948; 88305; J2704; J7120

== ENCOUNTER 2023-10-10 07:23 | Outpatient (CLI) | payer MEDICARE, SELFPAY ==
--- NOTE | ~2023-10-10 | NM_ITS ---
EXAMINATION: NM otoniel stress w perfusion DATE: 10/10/2023 12:21 INDICATION: Dyspnea on exertion TECHNIQUE: Rest images were obtained following intravenous administration of 10 mCi Tc99m tetrofosmin (Myoview). The patient was infused intravenously with Lexiscan (Regadenoson). Then, the 9.7 mCi Tc99 m tetrofosmin (Myoview) was administered intravenously, and stress images were obtained. Data was rec onstructed into short axis and horizontal and vertical long axis SPECT images. Gated SPECT images wer e also obtained. COMPARISON: None. FINDINGS: There is no definite reversible or fixed perfusion abnormality to suggest ischemia or infar ction. There is normal left ventricular chamber size, wall motion and ejection fraction. Left ventr icular ejection fraction measures 65%. IMPRESSION: 1. Normal myocardial perfusion at rest and during stress. 2. Left ventricular ejection fraction measuring 65%. Reviewed, dictated and finalized at location A.
--- NOTE | ~2023-10-10 | XR_ITS ---
EXAMINATION: XR chest 2V DATE: 10/10/2023 08:53 INDICATION: Dyspnea, unspecified. TECHNIQUE: Frontal and lateral views of the chest were obtained. COMPARISON: Chest 2 views 06/25/2018 FINDINGS: There is mild atelectasis in lingula. No pleural effusion or pneumothorax. Cardiomegaly is noted. IMPRESSION: 1. Mild atelectasis in lingula. No plain 2. Cardiomegaly. Reviewed, dictated and finalized at location A.
--- NOTE | 2023-10-10 07:30 | ECHO_ITS ---
Patient Info Name: Rosa Isela Helms Age: 72 years : 1950 Gender: Female Ht: 61 in Wt: 280 lbs BSA: 2.42 m2 HR: 68 bpm BP: 174 / 66 mmHg Heart Rhythm: Sinus Rhythm Technical Quality: Fair Exam Date: 10/10/2023 7:43 AM Exam Location: Echo Lab Patient Status: Outpatient Admit Date: 10/10/2023 Staff Ordering Physician: Kendell Laws DO Shuttle Fitting Supervisor: Idania Stevens RDCS Attending Provider: Kendell Laws DO Referring Physician: Veto STEVE; Exam Type: CA echo dop color flow w con Study Info Indications - Dyspnea Complete two-dimensional, color flow and Doppler transthoracic echocardiogram is performed. Summary 1. Complete two-dimensional, color flow and Doppler transthoracic echocardiogram is performed. 2. Left ventricular chamber dimension is normal. 3. Left ventricular systolic function is normal, estimated at 65-70%. 4. There is mild concentric increased left ventricular wall thickness. 5. The left ventricular diastolic function is abnormal. 6. E/e' 25 is elevated. 7. Left atrial chamber dimension is mildly enlarged. 8. There is mild aortic valve sclerosis. 9. The mitral valve has moderately calcified annulus. 10. There is mild tricuspid valve regurgitation. 11. No pulmonary hypertension, estimated pulmonary arterial systolic pressure is 32 mmHg. Left Ventricle E/e' 25 is elevated. Left ventricular chamber dimension is normal. Left ventricular systolic function is normal, estimated at 65-70%. There is mild concentric increased left ventricular wall thickness. The left ventricular diastolic function is abnormal. Right Ventricle Right ventricular systolic function is normal and with normal TAPSE 2.2 cm. Right ventricular chamber dimension is normal. Left Atria Left atrial chamber dimension is mildly enlarged. Right Atria Right atrial chamber dimension is normal. Aortic Valve The aortic valve is trileaflet. There is mild aortic valve sclerosis. There is no aortic valve stenosis. There is no aortic valve regurgitation. Pulmonic Valve There is no pulmonic regurgitation. Mitral Valve The mitral valve has moderately calcified annulus. There is no mitral valve stenosis. There is no mitral valve regurgitation. Tricuspid Valve There is mild tricuspid valve regurgitation. No pulmonary hypertension, estimated pulmonary arterial systolic pressure is 32 mmHg. Pericardium/Pleural There is no pericardial effusion. Inferior Vena Cava Normal inferior vena cava with >50% collapse upon inspiration consistent with normal right atrial pressure, 5 mmHg. Aorta The aortic root size at the sinus of Valsalva is normal. Left Ventricular Outflow Tract Name Value Normal LVOT 2D LVOT Diameter 2.01 cm LVOT Doppler LVOT Peak Gradient 5 mmHg LVOT Mean Gradient 3 mmHg LVOT VTI 26.65 cm LVOT VTI/AV VTI Ratio 0.70 LVOT Stroke Volume 84.46 ml LVOT CO 4.77 l/min LVOT CI 1.97 L/min/m2 Pulmonic Valve Name
--- NOTE | 2023-10-10 08:52 | EST_ITS ---
Patient Info Name: Rosa Isela Helms Age: 72 years : 1950 Gender: Female Ht: 61 in Wt: 280 lbs BSA: 2.42 m2 HR: 61 bpm BP: 150 / 55 mmHg Heart Rhythm: Sinus Rhythm Exam Date: 10/10/2023 10:20 AM Exam Location: Echo Lab Patient Status: Outpatient Admit Date: 10/10/2023 Staff Ordering Physician: Kendell Laws DO Attending Provider: Kendell Laws DO Exercise Technologist: Georgina Montelongo CT Exercise Physician: Kendell Laws DO Exam Type: CA stress otoniel w NM Study Info Indications R06.09 - Other forms of dyspnea A regadenoson stress test was performed. Summary 1. 1. Negative lexiscan stress test for ischemic ST changes by ECG criteria. 2. 2. Baseline hypertension. 3. 3. Nuclear scan to follow and will be reported separately. Please correlate with it. 4. 4. Patient informed of the above results. Protocol: Lexiscan Stress ECG Details Stage: REST Duration (min): 1 min : 8 sec HR (bpm): 62 SBP (mmHg): 150 DBP (mmHg): 55 Stage: REST Duration (min): 6 min : 58 sec HR (bpm): 71 SBP (mmHg): 150 DBP (mmHg): 55 Stage: STAGE 1 Duration (min): 0 min : 59 sec HR (bpm): 65 SBP (mmHg): 182 DBP (mmHg): 50 Stage: RECOVERY Duration (min): 1 min : 0 sec HR (bpm): 80 SBP (mmHg): 182 DBP (mmHg): 50 Stage: RECOVERY Duration (min): 2 min : 0 sec HR (bpm): 80 SBP (mmHg): 182 DBP (mmHg): 50 Stage: RECOVERY Duration (min): 3 min : 0 sec HR (bpm): 77 SBP (mmHg): 182 DBP (mmHg): 50 Stage: RECOVERY Duration (min): 3 min : 17 sec HR (bpm): 75 SBP (mmHg): 204 DBP (mmHg): 53 Rest HR: 71 bpm Peak HR: 81 bpm Rest Sys BP: 150 mmHg Peak Sys BP: 204 mmHg Max Pred HR: 149 bpm % Max Pred HR: 54 % Target HR: 127 bpm Max RPP: 16,524 bpm*mmHg Termination Reason: Completed protocol Cardiac Symptoms: Shortness of breath Total Time: 1 min : 0 sec Rest Morin BP: 55 mmHg Peak Morin BP: 53 mmHg Total Dose: 0.4 mg Resting ECG Sinus rhythm, RBBB. Stress ECG No ST changes. Arrhythmias None. Report Signatures
== END 2023-10-10 07:24 | disposition home or self-care (01) ==
PROVIDERS: PCP Family Medicine; Visit Provider Internal Medicine Cardiovascular Disease
DX: R06.09 Other forms of dyspnea (principal); J98.11 Atelectasis; I11.9 Hypertensive heart disease without heart failure; I35.8 Other nonrheumatic aortic valve disorders; I34.81 Nonrheumatic mitral (valve) annulus calcification; I36.1 Nonrheumatic tricuspid (valve) insufficiency
CPT/HCPCS: 71046; 78452; 93017; 93306; A9502; J2785

== ENCOUNTER 2024-01-23 13:12 | Outpatient (CLI) | payer MEDICARE, SELFPAY ==
--- NOTE | ~2024-01-23 | US_ITS ---
EXAMINATION: US pelvic complete w TV DATE: 01/23/2024 13:50 INDICATION: Abnormal uterine and vaginal bleeding. TECHNIQUE: Multiple transabdominal and transvaginal sonographic images of the pelvis were obtained. COMPARISON: None. FINDINGS: TRANSABDOMINAL ULTRASOUND: The uterus measures 10.4 x 4.0 x 5.2 cm. There is no free fluid in the pelvis. TRANSVAGINAL ULTRASOUND: The endometrial complex measures 12 mm in thickness. The ovaries are not visualized. IMPRESSION: 1. Thickened endometrial complex. The differential diagnosis includes endometrial hyperplasia, polyp, and carcinoma. Biopsy is recommended. Reviewed, dictated and finalized at location A. IMPRESSION: 1. Thickened endometrial complex. The differential diagnosis includes endometri al hyperplasia, polyp, and carcinoma. Biopsy is recommended.
== END 2024-01-23 13:13 | disposition home or self-care (01) ==
LOC: MICIMG 13:13
PROVIDERS: PCP Physician Assistant; Visit Provider Physician Assistant
DX: N93.9 Abnormal uterine and vaginal bleeding, unspecified (principal); Z78.0 Asymptomatic menopausal state
CPT/HCPCS: 76830; 76856

== ENCOUNTER 2024-02-25 08:41 | Outpatient (CLI) | payer MEDICARE, SELFPAY ==
[2024-02-25 09:35] LABS: Anion Gap 8 mmol/L (4-12); Blood Urea Nitrogen 14 mg/dL (7-17); Calcium 8.8 mg/dL (8.4-10.2); Carbon Dioxide 28 mmol/L (22-30); Chloride 104 mmol/L (98-107); Estimated Glomerular Filt Rate > 60; Glucose 120 mg/dL (65-110); Potassium 3.8 mmol/L (3.4-5.0); Sodium 140 mmol/L (137-145)
== END 2024-02-25 08:42 | disposition home or self-care (01) ==
PROVIDERS: Anesthesiology; PCP Physician Assistant; Visit Provider Obstetrics & Gynecology
DX: Z01.818 Encounter for other preprocedural examination (principal)
CPT/HCPCS: 36415; 80048

== ENCOUNTER 2024-03-01 01:16 | Day surgery (SDC) | payer MEDICARE, SELFPAY ==
--- NOTE | 2024-02-23 15:18 | PC.NURSE ---
Report to the Outpatient Waiting Room, entrance under the green pavilion located off [facility], at time _7:30 AM on date03/01/24 . Planned Procedure Time: _9:30 AM .? Time changes happen often and if your time is changed the preop area will call you the afternoon before. - You and your visitor will be asked to self-screen and do not enter if you have any COVID symptoms. Please call surgeon if you need to reschedule. - A mask is optional within the hospital at this time. Patients may have clear liquids (water, carbonated beverages, clear teas, apple juice) until 3 hours prior to surgery( 6:30 AM) with a maximum of 20 ounces. - No food from midnight until time of surgery and no smoking - Infants may have breast milk until 4 hours before surgery, formula 6 hours prior to surgery. - Children will be allowed to drink immediately following surgery.? If applicable, please bring a bottle or sippy cup to assist with drinking. Juice, water, soda, and popsicles are readily available.? For infants on formula, please bring formula the day of surgery.? Pacifiers are allowed. Take only the following medications with a SIP of water on the morning of surgery: BUSPIRONE,CARVEDILOL,FLUOXETINE,METOPROLOL INHALER IF NEEDED DO NOT STOP ANY OF YOUR OTHER PRESCRIPTION MEDICATIONS PRIOR TO SURGERY EXCEPT THE FOLLOWING Medications to discontinue per physician __HOLD ALL VITAMINS AND SUPPLEMENTS 3 DAYS PRE OP.LAST DOSE02/26/24 Please no make-up, nail german, hairspray, perfume, deodorant, or body powder the day of surgery.? No jewelry (including any body piercings) or valuables the day of surgery, leave them at home.? Please take a shower or bath the night before, or the morning of, surgery with an antibacterial soap.? Wear comfortable, loose fitting clothing.? Children are encouraged to wear pajamas. - Jewelry must be removed prior to entering the operating room.? Rings and piercings that are not removed may be cut off. - The hospital will not accept responsibility for valuables.? - Please leave all valuables, including medications, at home the day of surgery. If you are going home after surgery, a licensed wrecking car driver must drive you home.? - NO public transportation without another adult if you receive anesthesia. - We recommend that an adult stay with you for 24 hours following discharge. - We also recommend that you do not drive, make important decision, drink alcoholic beverages, or take any drugs that were not prescribed by your health care provider for at least 24 hours after your discharge time. For Pediatric surgeries, we recommend two adults accompany the child home. Follow any additional instructions given to you from your surgeon. Telephone instructions given to _PATIENT and asked if any additional questions and then verbalized understanding. Patient advised to call surgeon office or pre surgery nurse liaison [phone] if any additional questions.
[2024-02-23 15:26] VITALS: BMI 52.9
[2024-03-01] VITALS (9 sets, daily range): BP systolic 126–159; BP diastolic 35–70; PULSE 59–69; RESP 12–20; TEMP 36.2–37.2; O2SAT 94–100
--- NOTE | 2024-03-01 07:14 | WPDHPUPDATE1 ---
History and Physical Update Update Date/Time: 03/01/24 07:14 History and Physical has been reviewed, including an updated exam of the patient. There are NO changes in the patient's condition. Risks, benefits, and alternatives have been discussed and questions answered. Patient agrees to proceed with hysteroscopy with D&C.
[2024-03-01 07:55] LABS: Glucose Point of Care 167 mg/dl (65-105)
--- NOTE | 2024-03-01 08:02 | WPDANESEPPF ---
Anes - Initial Pre Proc Eval Procedure: Operation Date: 03/01/24 09:30 Proposed Procedures p Hysteroscopy Dilation and Curettage - Reina Valentin MD Date/Time: 03/01/24 08:02 Surgeon: Reina Valentin MD Pre Op Diagnosis: Post Menopausal Bleeding Patient Data Age: 73 Gender: F Height: 1.55 m Weight: 127.1 kg Allergies Allergy/AdvReac Type Severity Reaction Status Date / Time codeine Allergy Intermediate Itching Verified 03/01/24 07:48 Home Medications Medication Instructions Recorded Confirmed Type multivitamin (Daily Multi-Vitamin 1 tablet PO DAILY 08/05/19 02/23/24 History tablet) pen needle, diabetic 32 gauge x #100 ea 10/09/20 01/21/24 Rx 1/ (Comfort EZ Pen [place]) buspirone 10 mg tablet 10 mg PO TID #270 tabs 01/29/23 02/23/24 Rx insulin lispro 100 unit/mL See Rx Instructions .Route 05/02/23 02/23/24 Rx subcutaneous pen (Humalog KwikPen .COMPLEX #30 mL (U-100) Insulin) blood-glucose sensor (FreeStyle #1 ea 09/01/23 01/21/24 Rx Patricio 3 Sensor device) losartan 100 mg tablet See Rx Instructions .Route 09/01/23 02/23/24 Rx .COMPLEX #100 tabs omeprazole 20 mg capsule,delayed See Rx Instructions .Route 09/01/23 02/23/24 Rx release .COMPLEX #200 caps metformin 500 mg tablet,extended See Rx Instructions .Route 09/02/23 02/23/24 Rx release 24 hr .COMPLEX #400 tabs fluoxetine 40 mg capsule See Rx Instructions .Route 09/03/23 02/23/24 Rx .COMPLEX #90 caps amlodipine 10 mg tablet See Rx Instructions .Route 09/12/23 02/23/24 Rx .COMPLEX #100 tabs albuterol sulfate 90 mcg/actuation 1 inh inhalation Q4H PRN shortness 10/27/23 02/23/24 Rx aerosol inhaler of breath or wheezing #6.7 grams rosuvastatin 20 mg tablet See Rx Instructions .Route 12/03/23 02/23/24 Rx .COMPLEX #100 tabs insulin glargine 100 unit/mL (3 See Rx Instructions .Route 12/17/23 02/23/24 Rx mL) subcutaneous pen (Lantus .COMPLEX #15 mL Solostar U-100 Insulin) blood sugar diagnostic (OneTouch #300 ea 12/23/23 01/21/24 Rx Verio test strips) furosemide 40 mg tablet See Rx Instructions .Route 02/15/24 02/23/24 Rx .COMPLEX #100 tabs carvedilol 25 mg tablet See Rx Instructions .Route 02/16/24 02/23/24 Rx .COMPLEX #180 tabs melatonin 10 mg tablet 20 mg PO HS PRN Insomnia 02/23/24 02/23/24 History metoprolol succinate 100 mg 100 mg PO DAILY 02/23/24 02/23/24 History tablet,extended release 24 hr Laboratory Tests 03/01/24 07:51 POC Capillary Glucose 167 H mg/dl (65-105) Patient hx anesthesia problems: none Family hx anesthesia problems: none Results Review: All pre-operative results and documents have been reviewed as part of the pre-operative evaluation. [facility] Past Medical History Medical History Anxiety CHF (congestive heart failure) Chronic diastolic heart failure Diabetes mellitus with diabetic neuropathy, with long-term current use of insulin Dyspepsia Esophagitis Essential (primary) hypertension Family history of esophageal cancer History of malignant neoplasm of colon MDD (major depressive disorder), recurrent episode, moderate Morbid obesity NICOLAS (obstructive sleep apnea) NO CPAP Positive colorectal cancer screening using Cologuard test Type 2 diabetes mellitus with diabetic polyneuropathy, without long-term current use of insulin Surgical History Surgical History History of bilateral knee arthroplasty 6 years for r , 6 years for l History of bowel resection 10/26/2019 hand assisted laparoscopic left hemicolectomy with hand-sewn anastomosis. Laparoscopic mobilization of splenic flexure History of carpal tunnel release 20 years ago History of cataract surgery History of cholecystectomy 30 years ago History of left hemicolectomy Laparoscopic moblization of splenic flexure hand assisted laparoscopic left hemicolectomy with hand sewn amastomos
[2024-03-01] MEDS: ACETAMINOPHEN 500 MG TABLET 1000 MG PO (08:08)
[2024-03-01] MEDS: LACTATED RINGERS 1,000 ML 30 ML IV CONT ×2 (08:09→11:23)
--- NOTE | 2024-03-01 09:55 | W.PM.PROC2 ---
Procedure Note - Detailed Date of Procedure 03/01/24 Pre-op Diagnosis Post Menopausal Bleeding Thickened endometrium on US Post-op Diagnosis Same Procedure Performed Hysteroscopy with polypectomy Surgeon Reina Valentin MD Anesthesia MAC Findings Uterus sounded to 8cm. Endometrial polyp noted to be arising from the posterior wall of the LUL, normal appearing and easily removed. A large endometrial polyp/mass was otherwise filling the entire cavity; it was irregular appearing. It was arising from the anterior wall of the right cornua. The base had an area of firm tissue, with feeding blood vessel that was unable to be fully resected. Bilateral tubal ostia visualized. Good hemostasis at end of case. Fluid deficit: 50cc Description of Procedure Rosa Isela was taken to the operating room where she was placed under sedation with LMA without complications. She was then prepped and draped in the usual sterile fashion in the dorsal lithotomy position with her legs in low Enoch stirrups. A time-out was performed and no perioperative antibiotics were indicated. A bivalve speculum was placed within the vagina where the cervix was easily identified. The anterior lip of the cervix was grasped with a single-tooth tenaculum. The cervix was then serially dilated to allow for the hysteroscope. The hysteroscope was advanced into the uterine cavity with the above findings noted. Using the Aveta tissue shaver, the smaller endometrial polyp with removed without issue. The larger endometrial mass was then easily seen and also removed using the tissue shaver. The mass was quite large and filled the entire cavity; it was arising from the anterior wall of the right cornua. The base was firm and had a feeding blood vessel and was not able to be fully resected. Good hemostasis was noted. All instruments were removed from the vagina. Sponge, lap, instrument, and needle counts were correct at the end of the procedure. Patient was awoken from anesthesia and taken to recovery with plans of same-day discharge home. Estimated Blood Loss 5 IV Fluids 600 Pathology Yes (endometrial polyp/mass) Complications No immediate complications Condition Stable Disposition Same day [facility] Billing Surgery - Charge Forward: Surgery Billing
[2024-03-01 10:04] LABS: Glucose Point of Care 150 mg/dl (65-105)
[2024-03-01] MEDS: fentaNYL CITRATE INJ (*CRX) 100 MCG/2 ML VIAL 25 MCG IV PUSH ×5 (10:29→10:45)
== END 2024-03-01 12:04 | disposition home or self-care (01) ==
PROVIDERS: PCP Physician Assistant; Visit Provider Obstetrics & Gynecology
PROC: 0U5B8ZZ Destruction of Endometrium, Via Natural or Artificial Opening Endoscopic (ICD-10-PCS; CPT 58563; principal; 2024-03-01 09:30)
DX: R93.89 Abnormal findings on diagnostic imaging of other specified body structures (principal); N84.0 Polyp of corpus uteri; F41.9 Anxiety disorder, unspecified; I11.0 Hypertensive heart disease with heart failure; I50.32 Chronic diastolic (congestive) heart failure; E11.42 Type 2 diabetes mellitus with diabetic polyneuropathy; G47.33 Obstructive sleep apnea (adult) (pediatric); F33.8 Other recurrent depressive disorders; E66.01 Morbid (severe) obesity due to excess calories; Z68.43 Body mass index [BMI] 50.0-59.9, adult; Z79.84 Long term (current) use of oral hypoglycemic drugs; Z79.51 Long term (current) use of inhaled steroids; Z79.4 Long term (current) use of insulin; Z79.85 Long-term (current) use of injectable non-insulin antidiabetic drugs; Z98.890 Other specified postprocedural states; Z90.49 Acquired absence of other specified parts of digestive tract; Z85.038 Personal history of other malignant neoplasm of large intestine; Z80.0 Family history of malignant neoplasm of digestive organs; Z80.1 Family history of malignant neoplasm of trachea, bronchus and lung; Z82.49 Family history of ischemic heart disease and other diseases of the circulatory system
CPT/HCPCS: 58558; 36415; 80048; 82948; 88305; 88342; A9270; J1100; J2003; J2405; J2704; J3010; J7030; J7120